=== PATIENT | male | born 1940 | race Caucasian/White ===

== ENCOUNTER → 2023-11-19 09:22 | Outpatient (REF) | payer MEDICARE, BC, SELFPAY ==
[2023-11-19 10:55] LABS: Microalbumin, Random Urine <0.6 mg/dl (0.6-1.7)
[2023-11-19 11:04] LABS: % Basophils 0.7 % (0-2); % Eosinophils 4.2 % (0-6); % Immature Granulocytes 0.2 % (0-0.5); % Monocytes 11.4 % (1.7-9.3); % Neutrophils 64.5 % (42.2-75.2); Absolute Eosinophils 0.2 10^3/uL (0-0.7); Absolute Monocytes 0.6 10^3/uL (0.1-0.6); Absolute Neutrophils 3.5 10^3/uL (1.4-6.5); Hemoglobin 11.8 g/dL (13.0-18.0); Mean Corp Hgb Conc. 32.8 g/dL (33.0-37.0); Mean Corpuscular Hgb 32.5 pg (27.0-31.0); Mean Corpuscular Volume 99.2 fL (80.0-94.0); Nucleated Red Blood Cells % 0 % (-); Platelet Count 145 10^3/uL (130-400); Red Blood Cell Count 3.63 10^6/uL (4.70-6.10); Red Cell Dist. Width 14.6 % (11.5-14.5); White Blood Cell Count 5.4 10^3/uL (4.8-10.8)
[2023-11-19 11:58] LABS: ALT (SGPT) 23 U/L (0-50); AST (SGOT) 31 U/L (17-59); Albumin 4.5 g/dl (3.5-5.0); Alkaline Phosphatase 73 U/L (38-126); Blood Urea Nitrogen 30 mg/dl (9-20); Calcium 9.4 mg/dl (8.4-10.2); Carbon Dioxide 26 mmol/L (22-30); Chloride 101 mmol/L (98-107); Glucose 120 mg/dl (70-99); HDL Cholesterol 91 mg/dl; LDL Cholesterol, Calculated 50 mg/dl; Potassium 4.8 mmol/L (3.5-5.1); Sodium 136 mmol/L (135-145); Total Bilirubin 0.8 mg/dl (0.2-1.3); Total Cholesterol 149 mg/dl (50-199); Total Protein 7.1 g/dl (6.3-8.2); Triglyceride 41 mg/dl (10-149); Very Low Density Lipoprotein 8 mg/dl (0-30); eGFR > 60.00
[2023-11-19 12:15] LABS: Free T4 1.32 ng/dl (0.78-2.19); Glycohemoglobin (HgbA1c) 5.9 % (4.0-5.6)
[2023-11-19 12:29] LABS: TSH 0.87 uIU/ml (0.47-4.68)
== END ==
LOC: REG 09:22
PROVIDERS: ATTENDING PHYSICIAN Family Medicine
DX: E78.2 Mixed hyperlipidemia (principal); E11.9 Type 2 diabetes mellitus without complications; I10 Essential (primary) hypertension; E03.9 Hypothyroidism, unspecified
CPT/HCPCS: 36415; 80053; 80061; 82043; 82570; 83036; 84439; 84443; 85025

== ENCOUNTER → 2024-01-15 06:38 | Outpatient (REF) | payer MEDICARE, BC, SELFPAY | LOC: RAD 06:38 | PROVIDERS: ATTENDING PHYSICIAN Nuclear Medicine Nuclear Cardiology; FAMILY PHYSICIAN Family Medicine | DX: I10 Essential (primary) hypertension (principal); I77.9 Disorder of arteries and arterioles, unspecified; Z13.6 Encounter for screening for cardiovascular disorders; I25.10 Atherosclerotic heart disease of native coronary artery without angina pectoris | CPT/HCPCS: 76770; 93880 ==

== ENCOUNTER → 2024-01-23 08:19 | Outpatient (REF) | payer MEDICARE, BC, SELFPAY | LOC: RCS 08:19 | PROVIDERS: ATTENDING PHYSICIAN Nuclear Medicine Nuclear Cardiology; FAMILY PHYSICIAN Family Medicine | DX: I10 Essential (primary) hypertension (principal); R06.09 Other forms of dyspnea; Z95.1 Presence of aortocoronary bypass graft; Z95.2 Presence of prosthetic heart valve | CPT/HCPCS: 93306; Q9950 ==

== ENCOUNTER → 2024-07-07 10:58 | Outpatient (REF) | payer MEDICARE, BC, SELFPAY ==
[2024-07-07 11:53] LABS: % Basophils 0.9 % (0-2); % Eosinophils 3.2 % (0-6); % Immature Granulocytes 0.4 % (0-0.5); % Lymphocytes 15.7 % (20.5-51.1); % Monocytes 10.1 % (1.7-9.3); % Neutrophils 69.7 % (42.2-75.2); Absolute Basophils 0.1 10^3/uL (0-0.2); Absolute Eosinophils 0.2 10^3/uL (0-0.7); Absolute Lymphocytes 0.9 10^3/uL (1.2-3.4); Absolute Monocytes 0.6 10^3/uL (0.1-0.6); Absolute Neutrophils 3.9 10^3/uL (1.4-6.5); Hematocrit 35.7 % (39.0-52.0); Hemoglobin 11.5 g/dL (13.0-18.0); Mean Corp Hgb Conc. 32.2 g/dL (33.0-37.0); Mean Corpuscular Hgb 32.6 pg (27.0-31.0); Mean Corpuscular Volume 101.1 fL (80.0-94.0); Mean Platelet Volume 9.9 fL (7.4-10.4); Nucleated Red Blood Cells % 0 % (-); Platelet Count 153 10^3/uL (130-400); Red Blood Cell Count 3.53 10^6/uL (4.70-6.10); Red Cell Dist. Width 15.4 % (11.5-14.5); White Blood Cell Count 5.6 10^3/uL (4.8-10.8)
[2024-07-07 12:17] LABS: Glycohemoglobin (HgbA1c) 5.9 % (4.0-5.6)
[2024-07-07 12:25] LABS: ALT (SGPT) 24 U/L (0-50); AST (SGOT) 26 U/L (17-59); Albumin 4.6 g/dl (3.5-5.0); Alkaline Phosphatase 105 U/L (38-126); Blood Urea Nitrogen 19 mg/dl (9-20); Calcium 8.9 mg/dl (8.4-10.2); Carbon Dioxide 27 mmol/L (22-30); Chloride 97 mmol/L (98-107); Glucose 120 mg/dl (70-99); HDL Cholesterol 87 mg/dl; LDL Cholesterol, Calculated 42 mg/dl; Potassium 4.7 mmol/L (3.5-5.1); Sodium 135 mmol/L (135-145); Total Bilirubin 1.4 mg/dl (0.2-1.3); Total Cholesterol 137 mg/dl (50-199); Triglyceride 43 mg/dl (10-149); Very Low Density Lipoprotein 8 mg/dl (0-30); eGFR > 60.00
[2024-07-07 12:38] LABS: Free T4 1.35 ng/dl (0.78-2.19)
[2024-07-07 12:52] LABS: TSH 1.28 uIU/ml (0.47-4.68)
[2024-07-07 12:54] LABS: Microalbumin, Random Urine 3.7 mg/dl (0.6-1.7)
== END ==
LOC: REG 10:58
PROVIDERS: ATTENDING PHYSICIAN Family Medicine
DX: E11.9 Type 2 diabetes mellitus without complications (principal); E78.2 Mixed hyperlipidemia; E03.9 Hypothyroidism, unspecified
CPT/HCPCS: 36415; 80053; 80061; 82043; 82570; 83036; 84439; 84443; 85025

== ENCOUNTER → 2024-12-04 12:29 | Outpatient (REF) | payer MEDICARE, BC, SELFPAY ==
--- NOTE | 2024-12-04 14:29 | CARDSERVDEF ---
Echocardiogram with Definity completed after protocol screening completed. Allergies verified.
Patent IV site: _Rt AC____
IV site flushed with 0.9% NaCl pre and post administration.
Diluted bolus method utilized to enhance visualization of ventricular wilkins.
Total volume given: ___1.5 mL
Patient tolerated all procedures well without complications.
#22 austyn placed Rt AC. definity given. INT d/c'd. pressure held. no bleeding noted.
== END ==
LOC: RCS 12:29
PROVIDERS: ATTENDING PHYSICIAN Nurse Practitioner; FAMILY PHYSICIAN Family Medicine
DX: I48.0 Paroxysmal atrial fibrillation (principal); I35.0 Nonrheumatic aortic (valve) stenosis; Z95.2 Presence of prosthetic heart valve
CPT/HCPCS: 93307; Q9957

== ENCOUNTER → 2024-12-28 07:50 | Outpatient (REF) | payer MEDICARE, BC, SELFPAY | LOC: HWRCS 07:50 | PROVIDERS: ATTENDING PHYSICIAN Nuclear Medicine Nuclear Cardiology; FAMILY PHYSICIAN Family Medicine | DX: R55 Syncope and collapse (principal); I25.10 Atherosclerotic heart disease of native coronary artery without angina pectoris | CPT/HCPCS: 78452; 93017; A9500; J2785 ==

== ENCOUNTER 2025-01-04 12:47 | Emergency (ER) | payer MEDICARE, BC, SELFPAY ==
[2025-01-04 12:54] VITALS: BP 125/65
[2025-01-04 15:54] VITALS: BP 160/81
--- NOTE | 2025-01-04 17:27 | ED.GENMED ---
History of Present Illness
General
Chief Complaint: Musculo-Skeletal Complaint
Time Seen by Provider: 01/04/25 16:40
History of Present Illness
History of Present Illness:
84-year-old male presents to the emergency department for evaluation of left hip pain after a fall yesterday. 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 He is able to ambulate. His daughter noted severe bruising of the
area today and referred him into the ED, he does take Eliquis. Denies head strike
Past History
Past History
ED Past Medical History: Arrthythmia (Atrial fib), CAD, GERD, HTN, Hypercholesterolemia, [place], Hypothyroidism and Other (Anemia, BPH)
ED Past Surgical History: Cardiac (CABG,valve replaced), Orthopedic, Tonsilectomy and Other
Social History
Tobacco: Former smoker
Alcohol: Occasional
Drug: None
Personal:
Living: with family
Employment: Retired
Review of Systems
Review of Systems
Allergies reviewed?: Yes
Constitutional: Reports no symptoms
Phy Exam
Physical Exam
Physical Exam:
GEN: Well appearing, NAD, WDWN
HEENT: Oral mucosa moist, no scleral icterus
Cardiac: Regular rate
Lung: No respiratory distress, no tachypnea
MSK: Large ecchymosis with palpable hematoma to the left gluteus extending to the trochanteric region of the left hip, left hip range of motion is normal and unrestricted
Skin: Good color, no pallor or jaundice, no rashes
Neuro: AO x3, moves all extremities freely
Psych: Calm, cooperative
Course
Orders/Labs/Results
Orders:
Orders
01/04/25 16:42
CR Hip - LT w/wo Pel 2-3 Vw* Urgent
Comment:
Reason For Exam: fall
Include a pelvis x-ray?: Yes
Vital Signs
Initial and Last Documented VS:
Initial Vital Signs
Temp Pulse Resp BP Pulse Ox
97.9 F 86 16 125/65 98
01/04/25 12:54 01/04/25 12:54 01/04/25 12:54 01/04/25 12:54 01/04/25 12:54
Last Documented Vital Signs
Temp Pulse Resp BP Pulse Ox
97.9 F 71 16 160/81 99
01/04/25 12:54 01/04/25 15:54 01/04/25 12:54 01/04/25 15:54 01/04/25 17:28
MDM/Problems Addressed
MDM/Problems Addressed:
X-rays are unremarkable. The patient was able to ambulate steadily in the ED without significant pain. Likely soft tissue hematoma due to anticoagulant use. Discussed supportive care
*Pulse Oximetry
SaO2: 99
Oxygen Mode of Delivery: Room air
Patient hypoxic: no
*Critical Care Note
Total Time (30-74mins, 75-104mins- exclusive of procedures): Not Applicable
ED Attending Note
-
Portions of this chart may have been created with voice recognition software.� Occasional wrong word or��sound alike� substitutions may have occurred due to the inherent limitations of voice recognition software.
Discharge Plan
Departure
Patient Disposition: Home (Routine Discharge)
Date of Disposition: 01/04/25
Time of Disposition: 18:38
Patient with high blood pressure during this ER visit?: No
Discharge Problem:
Hematoma of left hip
Instructions: Hematoma
Prescriptions:
No Action
atorvastatin 80 MG tablet
80 mg PO QPM
terazosin 1 MG capsule
1 mg PO QPM
levothyroxine 100 MCG tablet
100 mcg PO DAILY
aspirin [Reuben Chewable Aspirin] 81 MG tablet,chewable
81 mg PO QPM
lisinopril 5 MG tablet
5 mg PO DAILY
metoprolol succinate 25 MG tablet extended release 24 hr
25 mg PO DAILY
Patient Comments:
Pt not sure if he is on metoprolol
finasteride 5 MG tablet
5 mg PO DAILY
ezetimibe 10 MG tablet
10 mg PO QPM
vit C,J-Oh-uvwdi-lutein-zeaxan [PreserVision AREDS-2] 1 EACH capsule
1 ea PO DAILY
apixaban [Eliquis] 5 MG tablet
5 mg PO BID
furosemide [Lasix] 20 MG tablet
20 mg PO DAILY
Patient Comments:
Pt took 2-3 doses as outpatient prior to TAVR
guaifenesin [Mucus Relief ER] 600 MG tablet extended release 12hr
600 mg PO Q12 Qty: 20 0RF
Referrals:
Mamadou Mi MD [Family Provider, Family Practice]
Interventions
Interventions:
*General Assessment Last Done: 01/04/25 18:58
*Nursing Disposition Last Done: 01/04/25 18:58
ED-Musculoskeletal Assessment Last Done: 01/04/25 17:45
Discharge Date and Time
Print Language: TANZANIAN
== END 2025-01-04 18:59 | disposition home or self-care (01) ==
LOC: EMR 12:47
PROVIDERS: EMERGENCY PHYSICIAN Student in an Organized Health Care Education/Training Program; FAMILY PHYSICIAN Family Medicine
DX: S70.02XA Contusion of left hip, initial encounter (principal); W01.0XXA Fall on same level from slipping, tripping and stumbling without subsequent striking against object, initial encounter; E03.9 Hypothyroidism, unspecified; E78.00 Pure hypercholesterolemia, unspecified; I10 Essential (primary) hypertension; I25.10 Atherosclerotic heart disease of native coronary artery without angina pectoris; Z87.891 Personal history of nicotine dependence; Z95.1 Presence of aortocoronary bypass graft
CPT/HCPCS: 99283; 73502

== ENCOUNTER → 2025-01-20 16:26 | Outpatient (REF) | payer MEDICARE, BC, SELFPAY | LOC: CLAB 16:26 | PROVIDERS: ATTENDING PHYSICIAN Surgery | DX: N39.0 Urinary tract infection, site not specified (principal) | CPT/HCPCS: 87086 ==

== ENCOUNTER → 2025-02-05 12:34 | Outpatient (REF) | payer MEDICARE, BC, SELFPAY ==
[2025-02-05 14:01] LABS: Hematocrit 33.2 % (39.0-52.0); Hemoglobin 10.9 g/dL (13.0-18.0); Mean Corp Hgb Conc. 32.8 g/dL (33.0-37.0); Mean Corpuscular Volume 100.9 fL (80.0-94.0); Nucleated Red Blood Cells % 0 % (-); Platelet Count 177 10^3/uL (130-400); Red Cell Dist. Width 15.6 % (11.5-14.5)
[2025-02-05 16:29] LABS: ALT (SGPT) 24 U/L (0-50); AST (SGOT) 26 U/L (17-59); Albumin 4.5 g/dl (3.5-5.0); Alkaline Phosphatase 89 U/L (38-126); Blood Urea Nitrogen 24 mg/dl (9-20); Calcium 9.2 mg/dl (8.4-10.2); Carbon Dioxide 27 mmol/L (22-30); Chloride 100 mmol/L (98-107); Glucose 167 mg/dl (70-99); Potassium 4.9 mmol/L (3.5-5.1); Sodium 135 mmol/L (135-145); Total Protein 7.1 g/dl (6.3-8.2); eGFR > 60.00
== END ==
LOC: REG 12:34
PROVIDERS: ATTENDING PHYSICIAN Surgery; FAMILY PHYSICIAN Family Medicine
DX: N40.1 Benign prostatic hyperplasia with lower urinary tract symptoms (principal); I48.0 Paroxysmal atrial fibrillation
CPT/HCPCS: 36415; 80053; 84153; 84154; 85025

== ENCOUNTER 2025-02-22 06:37 | Day surgery (SDC) | payer MEDICARE, BC, SELFPAY ==
[2025-02-22] VITALS (9 sets, daily range): BP systolic 114–170; BP diastolic 60–105; BMI 32.5
--- NOTE | 2025-02-22 16:32 | W.IMMPOSTOP ---
Surgical Immed Post Op Note
-
Primary Surgeon: Glenn
Pre-op Diagnosis: BPH with UPTON, bladder stone
Post-op Diagnosis: Same
Procedure Performed: Cystolitholapaxy, TURP
Anesthesia Type: LMA
Specimen / Cultures: Prostate chips/None
Estimated Blood Loss: Negligible
Drains: 22Fr 3-way catheter (25 cc in balloon)
Complications: None
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
[2025-02-22] MEDS: DETROL LA 4 MG PO (16:55)
[2025-02-22] MEDS: LOW STRENGTH ASPIRIN 81 MG PO (18:11)
[2025-02-22] MEDS: LIPITOR 80 MG PO (18:11)
[2025-02-22] MEDS: ZETIA 10 MG PO (18:12)
--- NOTE | 2025-02-22 19:13 | PTCARENOTE ---
1735 Pt arrived from PACU. VSS. Oriented to room and call banuelos. CBI infusing bright red urine draining. Bed locked and in the lowest position.
[2025-02-22] MEDS: OCUVITE SOFTGEL 1 CAP PO (20:42)
[2025-02-22] MEDS: FLOMAX 0.4 MG PO (20:42)
[2025-02-23 03:09] VITALS: BP 140/81
[2025-02-23] MEDS: SYNTHROID 100 MCG PO (06:11)
[2025-02-23 07:00] VITALS: BP 150/77
[2025-02-23 07:30] LABS: Hematocrit 33.4 % (39.0-52.0); Hemoglobin 11.0 g/dL (13.0-18.0); Mean Corp Hgb Conc. 32.9 g/dL (33.0-37.0); Mean Corpuscular Volume 100.3 fL (80.0-94.0); Nucleated Red Blood Cells % 0 % (-); Platelet Count 150 10^3/uL (130-400); Red Cell Dist. Width 15.2 % (11.5-14.5)
[2025-02-23 07:50] LABS: Blood Urea Nitrogen 18 mg/dl (9-20); Calcium 9.2 mg/dl (8.4-10.2); Carbon Dioxide 27 mmol/L (22-30); Chloride 100 mmol/L (98-107); Estimated Creatinine Clearance 72 ml/min; Glucose 132 mg/dl (70-99); Potassium 4.7 mmol/L (3.5-5.1); Sodium 134 mmol/L (135-145); eGFR > 60.00
[2025-02-23] MEDS: OCUVITE SOFTGEL 1 CAP PO (09:37)
[2025-02-23] MEDS: TOPROL XL 25 MG PO (09:37)
[2025-02-23] MEDS: ZESTRIL 5 MG PO (09:38)
[2025-02-23] MEDS: PROSCAR 5 MG PO (09:38)
--- NOTE | 2025-02-23 10:38 | CM ---
Reviewed the chart notes and spoke with the patient at the bedside. The patient resides alone in a one story home with a total of two steps to enter. The patient reports DME in home includes cane, rolling walker, and shower chair. The patient has
had [facility] in the past, but no SNF. The patient confirmed [facility]. CM continues to be available to patient/family and is monitoring medical plan for needs at discharge.
Plan: Discharge to home when medically stable. Son-in-law or daughter will transport home today.
[2025-02-23 11:00] VITALS: BP 108/55
--- NOTE | 2025-02-23 12:05 | W.DS.TRANS ---
DC Summary - Private Tutor
-
Discharge Instructions:
Sleep Apnea Risk Intermediate
Discharge Diagnosis/Procedures BPH with UPTON, bladder stone s/p cystolitholapaxy
and TURP
Diet Regular
Activity No strenuous activity
Additional Activity No strenuous activity, heavy exercise, lifting >
20 lbs for 1 week after surgery
Driving Restrictions No driving for 24 hours
Bathing Restrictions None
Blood Work not applicable
Wound Care not applicable
Instructions:
Stand-Alone Forms:
Changes to Home Medications: No
Discharge Medications:
DC Medications w/original date entered in [employer]
aspirin 81 mg chewable tablet (Reuben Chewable Low Dose Aspirin) 81 mg PO QPM Blood clot prevention/tx 07/19/20
atorvastatin 80 mg tablet 80 mg PO QPM High cholesterol 07/19/20
ezetimibe 10 mg tablet 10 mg PO QPM High cholesterol 07/19/20
finasteride 5 mg tablet 5 mg PO DAILY PROSTATE 07/19/20
levothyroxine 100 mcg tablet 100 mcg PO DAILY Thyroid 07/19/20
lisinopril 5 mg tablet 5 mg PO DAILY Blood pressure 07/19/20
metoprolol succinate 25 mg tablet,extended release 24 hr 25 mg PO DAILY Blood pressure 07/19/20
vit C 250 mg-vit E 90 mg-zinc 40 mg-copper 1 pb-kusfek-bgxwoz capsule (PreserVision AREDS-2) 1 ea PO BID Supplement 07/19/20
apixaban 5 mg tablet (Eliquis) 5 mg PO BID Blood clot prevention/tx 08/08/20
Held on 02/22/25. Instructions: Resume on 02/25/25.
furosemide 20 mg tablet (Lasix) 20 mg PO DAILY PRN Fluid retention/Swelling 08/12/20
tamsulosin 0.4 mg capsule 0.4 mg PO HS 02/19/25
amoxicillin 500 mg-potassium clavulanate 125 mg tablet (Augmentin) 1 tab PO BID 5 days #10 tabs 02/22/25
phenazopyridine 200 mg tablet (Pyridium) 200 mg PO BID PRN dysuria 4 days #8 tabs 02/22/25
Home Medication Changes
Pending Results: Yes
Additional Pending Results:
surgical pathology
Total time spent discharging patient (in min): 35
[2025-02-23 15:00] VITALS: BP 135/66
--- NOTE | 2025-02-23 16:12 | W.PN.UPDATE ---
Update Note
Progress Note Update
Post-op urinary retention noted in afternoon w/o void - bladder scan >900 cc.
20Fr Coude catheter placed w/ merlot-colored aqueous UOP - 200 +700 cc UOP.
Of note, patient required to be on aspirin perioperatively per Cardiology (Eliquis held preop and postop).
exam: aqueous dark bloody drainage w/o clots, bladder non-distended.
Plan:
- Maintain Mark catheter to drainage - no indication for 3-way or CBI at this time
- Hand irrigate w/ 30-60 cc sterile solution prn
- Will plan for d/c home w/ catheter in place - outpatient voiding trial
D/w patient.
D/w RN.
[2025-02-23] MEDS: ZETIA 10 MG PO (18:14)
[2025-02-23] MEDS: LOW STRENGTH ASPIRIN 81 MG PO (18:14)
[2025-02-23] MEDS: LIPITOR 80 MG PO (18:14)
--- NOTE | 2025-02-23 18:25 | PTCARENOTE ---
@1500, pt unable to void except small drips of blood. pt assisted out of bed to chair to bathroom, passed a few clots. pt ambulated in hallway with RW. voided a small amount. bladder scan revealed 903ml. Dr Elizabeth notified. new order received
to replace Mark catheter. AT 1530, #20 Fr Coude catheter placed without difficulty. immediate return dark red blood-[address] Elizabeth made aware and @1545, catheter hand irrigated with 60 ml NSS via catheter directly easily, no resistance
and immediate return of 60 ml dark red blood with few small clots. catheter reconnected to drainage bag and 750 ml dark red bloody urine drained. Dr Elizabeth to see pt. care ongoing.
[2025-02-23] MEDS: FLOMAX 0.4 MG PO (21:32)
[2025-02-23] MEDS: OCUVITE SOFTGEL PO (22:37)
[2025-02-24] MEDS: SYNTHROID 100 MCG PO (05:40)
[2025-02-24 08:18] VITALS: BP 121/63
--- NOTE | 2025-02-24 08:56 | CM ---
Addendum entered by Nasrin Nayak RN 02/24/25 12:57:
No VN needed since patient will have villalobos removed in urologies office tomorrow at 9AM. Patient aware and agreeable. Patient's daughter is a nurse.
Original Note:
Reviewed the chart notes and spoke with the patient at the bedside. Patient had villalobos reinserted late yesterday. Per notes, patient will be discharged with villalobos. Patient had [facility] in past and agreeable to a referral for [facility] being sent via [facility] continues to be available to patient/family and is monitoring medical plan for needs at discharge.
Plan: Discharge to home with [facility] services. Family to transport.
[2025-02-24] MEDS: OCUVITE SOFTGEL 1 CAP PO (10:02)
[2025-02-24] MEDS: ZESTRIL 5 MG PO (10:02)
[2025-02-24] MEDS: PROSCAR 5 MG PO (10:03)
[2025-02-24] MEDS: TOPROL XL 25 MG PO (10:03)
--- NOTE | 2025-02-24 12:50 | VNURNOTE ---
Chart reviewed. Per Dr Elizabeth, pt will go to Uro office tomorrow AM for voiding trial. Confirmed w/Uro pt will not need VN. CM [place] updated.
PM-[facility] referral cancelled. Magalie in Intake aware.
[2025-02-24 15:45] VITALS: BP 106/56
[2025-02-28 12:46] LABS: Stone Analysis Mass 123 mg
== END 2025-02-24 16:15 | disposition home or self-care (01) ==
LOC: SDS 06:37
PROVIDERS: ATTENDING PHYSICIAN Surgery
DX: N40.1 Benign prostatic hyperplasia with lower urinary tract symptoms (principal); N32.0 Bladder-neck obstruction; N21.0 Calculus in bladder
CPT/HCPCS: 52601; 80048; 82365; 85025; 88305; 93005; 93971

== ENCOUNTER 2025-03-05 02:04 | Inpatient (IN) | payer MEDICARE, BC, SELFPAY ==
[2025-03-04 23:02] VITALS: BP 146/118
[2025-03-04] MEDS: TYLENOL 1000 MG PO (23:15)
[2025-03-04 23:22] LABS: Hematocrit 27.1 % (39.0-52.0); Hemoglobin 9.2 g/dL (13.0-18.0); Mean Corp Hgb Conc. 33.9 g/dL (33.0-37.0); Mean Corpuscular Volume 95.4 fL (80.0-94.0); Nucleated Red Blood Cells % 0 % (-); Platelet Count 170 10^3/uL (130-400); Red Cell Dist. Width 15.0 % (11.5-14.5)
[2025-03-04 23:30] VITALS: BP 104/55; BMI 32.7
[2025-03-04 23:48] LABS: ALT (SGPT) 22 U/L (0-50); AST (SGOT) 26 U/L (17-59); Albumin 4.0 g/dl (3.5-5.0); Alkaline Phosphatase 83 U/L (38-126); Blood Urea Nitrogen 19 mg/dl (9-20); Calcium 8.9 mg/dl (8.4-10.2); Carbon Dioxide 23 mmol/L (22-30); Chloride 100 mmol/L (98-107); Estimated Creatinine Clearance 53 ml/min; Glucose 147 mg/dl (70-99); Potassium 4.7 mmol/L (3.5-5.1); Sodium 131 mmol/L (135-145); Total Protein 6.6 g/dl (6.3-8.2); eGFR > 60.00
--- NOTE | 2025-03-04 23:51 | ED.GENMED ---
History of Present Illness
<Cynthia Alejandra PA-C - Last Filed: 03/05/25 02:14>
General
Chief Complaint: Fever
Time Seen by Provider: 03/04/25 23:28
History of Present Illness
History of Present Illness:
see MDM
Past History
<LAURA Dumont Last Filed: 03/05/25 02:14>
Past History
ED Past Medical History: Arrthythmia (Atrial fib), CAD, GERD, HTN, Hypercholesterolemia, [place], Hypothyroidism and Other (Anemia, BPH)
ED Past Surgical History: Cardiac (CABG,valve replaced), Orthopedic, Tonsilectomy and Other
Social History
Tobacco: Former smoker
Alcohol: Occasional
Drug: None
Personal:
Living: with family
Employment: Retired
Phy Exam
<LAURA Dumont Last Filed: 03/05/25 02:14>
Physical Exam
Physical Exam:
GENERAL: Alert , in no apparent distress
EYE: pupils equal and reactive
NECK: Supple
ENT: o/p clr, mmm.
CARDIAC: Regular rate and rhythm .
LUNGS: Clear breath sounds bilaterally, no acute respiratory distress, no wheezes/rales/rhonchi
ABDOMEN: Soft, mild distention no r/g, no cvat, normal bowel sounds
: Penis with evidence of dried blood, no active bleeding
NEUROLOGICAL: Alert and oriented, no focal neuro deficits
SKIN: Warm and dry, skin intact.
MUSCULOSKELETAL: No edema, well perfused. neg kassie's sign
PSYCH: Normal and appropriate interaction.
Sepsis
<LAURA Dumont Last Filed: 03/05/25 02:14>
Sepsis Screening
Sepsis Assessment: Sepsis
Sepsis Screen
Sepsis Screen: Sepsis
Date: 03/05/25
Time: 02:14
Course
<Cynthia Alejandra PA-C - Last Filed: 03/05/25 02:14>
Orders/Labs/Results
Orders:
Orders
03/04/25 23:11
Urinalysis Reflex To Culture Urgent
Date Specimen was Collected: 03/04/25
Time Specimen was Collected: 23:11
03/04/25 23:13
Complete Blood Count/With Diff Urgent
Comprehensive Metabolic Panel Urgent
Lactic Acid Q4H
Comment: ON ICE, CANCEL 2ND ORDER IF FIRST LACTIC ACID LEVEL <2
03/04/25 23:14
Blood Culture Q20M
TOI Source: Blood/Venous
Specimen Description:
Comment: Urgent from separate sites. If patient screens positive for possible sepsis
03/04/25 23:15
Acetaminophen [Tylenol] 1,000 mg PO NOW STA
03/04/25 23:35
Blood Culture Q20M
TOI Source: Blood/Venous
Specimen Description:
Comment: Urgent from separate sites. If patient screens positive for possible sepsis
03/04/25 23:51
Villalobos Placement- Treatment ONCE
Reason for insertion: Acute Retention
0.9% Sodium Chloride 1000 ml [Nss] 1,000 ml IV BOLUS
03/05/25 00:01
Piperacillin/Tazo 3.375 Gram [Zosyn] 3.375 gram in 50 ml IV NOW
Vancomycin [Vancocin] 2,000 mg 0.9% Sodium Chloride 500 ml [Nss] 500 ml IV NOW
03/05/25 00:03
CR Chest - 2 Views Urgent
Comment:
Reason For Exam: sepsis
03/05/25 00:04
CT Abd/pel Without Iv Or Oral Urgent
Comment:
Reason For Exam: turp, hematuria, fever
03/05/25 00:33
Influenza A+B Rapid Molecular Urgent
TOI Source: Nasal Swab
Specimen Description:
03/05/25 00:34
COVID-19 Antigen Urgent
Source: Nasal Swab
Lactic Acid Q4H
Comment: ON ICE, CANCEL 2ND ORDER IF FIRST LACTIC ACID LEVEL <2
Urine Microscopic Reflex Cult Urgent
03/05/25 01:33
0.9% Sodium Chloride 1000 ml [Nss] 1,500 ml IV BOLUS
03/05/25 01:47
CBI- Treatment PRN
Solution: normal saline
Irrigate to Clear?: Yes
03/05/25 01:56
Admit/Transfer Patient As Directed
Co-Sign Provider:
Level of Care: Inpatient admission
Assign to:: Medical/Surgical
Physician / Group: [facility]
Diagnosis: Hematuria, Sepsis / UTI
Reason for Hospitalization: Hematuria, Sepsis / UTI
Expected length of stay greater than two midnights?: Yes
ELOS- Estimated Length of Stay in days: 3
I certify the patient meets the requirements for IP care: Yes
PRN Pain Medication Management As Directed
May give lesser potent ordered pain med per pt: Yes
preference::
Protocol:: Medication orders for pain may be administered in a
manner that supports deferring to patient preference
when the pt is:
- Requesting an ordered lesser potent pain medication.
Least to most potent pain medications are defined
as: acetaminophen < NSAID < tramadol < opioids
(morphine, oxycodone, hydromorphone).
- Requesting a lesser dose of the same medication IF
ORDERED.
- Requesting a less intrusive route of administration
if both routes are prescribed by the provider (PO <
IV).
03/05/25 01:57
Code Status As Directed
Resuscitation Status: Do not resuscitate
Reached after discussion with pt or family/Healthcare POA: Yes
DNR Bracelet Application ONCE
03/05/25 02:00
Potassium Alum 30 grams 0.9% Sod Chloride 3000 ml Irr [Nss Irrigation Bag] 2,700 ml IRRIG ORDERED RATE
US Periph Venous LOWER Ext Richard Urgent
Comment:
Reason For Exam: Asymmetric edema
Abnormal Lab Results
03/04/25 03/05/25
23:13 00:34
WBC 14.9 H 10^3/uL
(4.8-10.8)
RBC 2.84 L 10^6/uL
(4.70-6.10)
Hgb 9.2 L g/dL
(13.0-18.0)
Hct 27.1 L %
(39.0-52.0)
MCV 95.4 H fL
(80.0-94.0)
MCH 32.4 H pg
(27.0-31.0)
RDW 15.0 H %
(11.5-14.5)
Abs Immat Gran (auto) 0.1 H 10^3/uL
(0-0.05)
Absolute Neuts (auto) 14.3 H 10^3/uL
(1.4-6.5)
Absolute Lymphs (auto) 0.2 L 10^3/uL
(1.2-3.4)
Neutrophils % 95.6 H %
(42.2-75.2)
Lymphocytes % 1.6 L %
(20.5-51.1)
Sodium 131 L mmol/L
(135-145)
Glucose 147 H mg/dl
(70-99)
Ur Occult Blood Reflex 4+ A
(Negative)
Urine RBC >100 A /HPF
(0-2)
Urine Albumin (Reflex) 4+ A
(Neg - Trace)
03/04/25 23:13
03/04/25 23:13
Vital Signs
Initial and Last Documented VS:
Initial Vital Signs
Temp Pulse Resp BP Pulse Ox
39.5 C H 102 16 146/118 96
03/04/25 23:02 03/04/25 23:02 03/04/25 23:02 03/04/25 23:02 03/04/25 23:02
Last Documented Vital Signs
Temp Pulse Resp BP Pulse Ox
39.5 C H 97 17 101/49 94
03/04/25 23:02 03/05/25 00:00 03/05/25 00:00 03/05/25 00:00 03/04/25 23:53
<Tanner Linares, DO - Last Filed: 03/05/25 00:02>
Orders/Labs/Results
Orders:
Orders
03/04/25 23:11
Urinalysis Reflex To Culture Urgent
Date Specimen was Collected: 03/04/25
Time Specimen was Collected: 23:11
03/04/25 23:13
Complete Blood Count/With Diff Urgent
Comprehensive Metabolic Panel Urgent
Lactic Acid Q4H
Comment: ON ICE, CANCEL 2ND ORDER IF FIRST LACTIC ACID LEVEL <2
03/04/25 23:14
Blood Culture Q20M
TOI Source: Blood/Venous
Specimen Description:
Comment: Urgent from separate sites. If patient screens positive for possible sepsis
03/04/25 23:15
Acetaminophen [Tylenol] 1,000 mg PO NOW STA
03/04/25 23:35
Blood Culture Q20M
TOI Source: Blood/Venous
Specimen Description:
Comment: Urgent from separate sites. If patient screens positive for possible sepsis
03/04/25 23:51
Villalobos Placement- Treatment ONCE
Reason for insertion: Acute Retention
0.9% Sodium Chloride 1000 ml [Nss] 1,000 ml IV BOLUS
03/05/25 00:01
Piperacillin/Tazo 3.375 Gram [Zosyn] 3.375 gram in 50 ml IV NOW
Vancomycin [Vancocin] 2,000 mg 0.9% Sodium Chloride 500 ml [Nss] 500 ml IV NOW
03/05/25 00:03
CR Chest - 2 Views Urgent
Comment:
Reason For Exam: sepsis
03/05/25 00:04
CT Abd/pel Without Iv Or Oral Urgent
Comment:
Reason For Exam: turp, hematuria, fever
03/05/25 00:33
Influenza A+B Rapid Molecular Urgent
TOI Source: Nasal Swab
Specimen Description:
03/05/25 00:34
COVID-19 Antigen Urgent
Source: Nasal Swab
Lactic Acid Q4H
Comment: ON ICE, CANCEL 2ND ORDER IF FIRST LACTIC ACID LEVEL <2
Urine Microscopic Reflex Cult Urgent
03/05/25 01:33
0.9% Sodium Chloride 1000 ml [Nss] 1,500 ml IV BOLUS
03/05/25 01:47
CBI- Treatment PRN
Solution: normal saline
Irrigate to Clear?: Yes
03/05/25 01:56
Admit/Transfer Patient As Directed
Co-Sign Provider:
Level of Care: Inpatient admission
Assign to:: Medical/Surgical
Physician / Group: [facility]
Diagnosis: Hematuria, Sepsis / UTI
Reason for Hospitalization: Hematuria, Sepsis / UTI
Expected length of stay greater than two midnights?: Yes
ELOS- Estimated Length of Stay in days: 3
I certify the patient meets the requirements for IP care: Yes
PRN Pain Medication Management As Directed
May give lesser potent ordered pain med per pt: Yes
preference::
Protocol:: Medication orders for pain may be administered in a
manner that supports deferring to patient preference
when the pt is:
- Requesting an ordered lesser potent pain medication.
Least to most potent pain medications are defined
as: acetaminophen < NSAID < tramadol < opioids
(morphine, oxycodone, hydromorphone).
- Requesting a lesser dose of the same medication IF
ORDERED.
- Requesting a less intrusive route of administration
if both routes are prescribed by the provider (PO <
IV).
03/05/25 01:57
Code Status As Directed
Resuscitation Status: Do not resuscitate
Reached after discussion with pt or family/Healthcare POA: Yes
DNR Bracelet Application ONCE
03/05/25 02:00
Potassium Alum 30 grams 0.9% Sod Chloride 3000 ml Irr [Nss Irrigation Bag] 2,700 ml IRRIG ORDERED RATE
US Periph Venous LOWER Ext Richard Urgent
Comment:
Reason For Exam: Asymmetric edema
Abnormal Lab Results
03/04/25 03/05/25
23:13 00:34
WBC 14.9 H 10^3/uL
(4.8-10.8)
RBC 2.84 L 10^6/uL
(4.70-6.10)
Hgb 9.2 L g/dL
(13.0-18.0)
Hct 27.1 L %
(39.0-52.0)
MCV 95.4 H fL
(80.0-94.0)
MCH 32.4 H pg
(27.0-31.0)
RDW 15.0 H %
(11.5-14.5)
Abs Immat Gran (auto) 0.1 H 10^3/uL
(0-0.05)
Absolute Neuts (auto) 14.3 H 10^3/uL
(1.4-6.5)
Absolute Lymphs (auto) 0.2 L 10^3/uL
(1.2-3.4)
Neutrophils % 95.6 H %
(42.2-75.2)
Lymphocytes % 1.6 L %
(20.5-51.1)
Sodium 131 L mmol/L
(135-145)
Glucose 147 H mg/dl
(70-99)
Ur Occult Blood Reflex 4+ A
(Negative)
Urine RBC >100 A /HPF
(0-2)
Urine Albumin (Reflex) 4+ A
(Neg - Trace)
03/04/25 23:13
03/04/25 23:13
Vital Signs
Initial and Last Documented VS:
Initial Vital Signs
Temp Pulse Resp BP Pulse Ox
39.5 C H 102 16 146/118 96
03/04/25 23:02 03/04/25 23:02 03/04/25 23:02 03/04/25 23:02 03/04/25 23:02
Last Documented Vital Signs
Temp Pulse Resp BP Pulse Ox
39.5 C H 97 17 101/49 94
03/04/25 23:02 03/05/25 00:00 03/05/25 00:00 03/05/25 00:00 03/04/25 23:53
<Cynthia Alejandra PA-C - Last Filed: 03/05/25 02:14>
MDM/Problems Addressed
Differential Diagnosis Includes:
see MDM
MDM/Problems Addressed:
Note:
CHIEF COMPLAINT(S)
Urinary retention and fever.
HISTORY OF PRESENT ILLNESS
The patient is an 84-year-old male who has a history of recent transurethral resection of the prostate (TURP) surgery by dr. bower on 02/22, here for urinary retention and fever. he f/u in the office on 03/02 and had his villalobos pulled. in the office
he was able to void some but not all the way so they gave him self-cath instructions to cath 2 times a day in addition to voiding on his own. The patient reports being able to void in small amounts intermittently but has experienced significant
retention since this afternoon, leading to increased feelings of malaise and chills, leading him to suspect a fever.
He last successfully voided a small amount this morning. The patient returned to the facility with symptoms of urinary retention, reporting that when he urinates, it is mostly dribbling with occasional larger outputs. Recently, urine output has
decreased significantly. He notes seeing blood in the urine, especially in smaller quantities.
The patient mentions feeling discomfort and chills, but did not check his temperature at home. He returned to taking his blood thinner, Apixaban, after being advised to stop temporarily for his procedure. The patient denies having taken any
antipyretic medication, such as acetaminophen, prior to arrival. There are no symptoms of nausea, vomiting, back pain, or chills. His daughter has been involved in his care and may be contacted for additional information.
ADDITIONAL HISTORY OBTAINED FROM SOURCES OTHER THAN THE PATIENT
Per the patients daughter, he has had four prior visits to the emergency room, though not since the recent surgery.
SOCIAL DETERMINANTS AFFECTING HEALTH
The patient has limited visual acuity, impacting his ability to perform self-catheterization effectively.
PHYSICAL EXAM
- Temperature: 103�F
- Blood Pressure: 104/55 mmHg
- Cardiovascular: No tachycardia noted
- Abdomen: Not tender on examination
- Genitourinary: Presence of blood in urine, as noted in the diaper
Nursing notes reviewed and vital signs reviewed. Data indicates urinary retention with approximately 700 milliliters in the bladder, confirmed via bladder scan.
PROBLEM LIST
Acute:
- Urinary retention
- Fever
Chronic:
- Recent TURP surgery
- Use of Apixaban for anticoagulation
PLAN
- Initiate a good septic workup, including the collection of blood cultures and laboratory assessments such as lactate levels.
- Administer acetaminophen to address febrile symptoms.
- Insert a Villalobos catheter equipped with irrigation capability to relieve urinary retention and manage blood clots in the bladder.
- As the catheter irrigates, monitor and clear any clots contributing to retention.
- Consider overnight admission to the facility to manage symptoms, especially due to the patients recent surgery and the potential risk of developing sepsis.
DIFFERENTIAL DIAGNOSIS
The Differential Diagnosis includes, in no particular order and is not limited to:
1. Urinary tract infection
2. Post-operative complications from TURP
3. Catheter-associated urinary tract infection
4. Bladder outlet obstruction
5. Non-infectious fever secondary to urine retention
6. Sepsis secondary to urological issue
7. Drug-induced hemorrhagic cystitis
8. Pyelonephritis
9. Prostatic hypertrophy
10. Urosepsis
84 y/o M
TURP 02/22
on eliquis which was resumed a few days post op
urinary retention after pulling villalobos in office 2 day sago
given isntreuctions to self cath
pt cannot unfortuantely do this, he cannot see well
he reports he only successfully cathed once
he now has hematuria and retention and a fever
soft bp
probably from the catheterizing
bladder scan [address] for CBI
hg stable but lower than preop
admit
iv abx
fluids
hold epiquis
<Cynthia Alejandra PA-C - Last Filed: 03/05/25 02:14>
*Pulse Oximetry
SaO2: 94
Oxygen Mode of Delivery: Room air
Patient hypoxic: no (95)
*Critical Care Note
Total Time (30-74mins, 75-104mins- exclusive of procedures): Not Applicable
ED Attending Note
<Cynthia Alejandra PA-C - Last Filed: 03/05/25 02:14>
-
Portions of this chart may have been created with voice recognition software.� Occasional wrong word or��sound alike� substitutions may have occurred due to the inherent limitations of voice recognition software.
<Tanner Linares DO - Last Filed: 03/05/25 00:02>
ED Attending Note
Patient seen and examined by attending physician: Yes
ED Attending Note:
Patient seen in conjunction with RUDOLPH. I have reviewed and agree with her disposition and treatment plan. Patient to be admitted for fevers post procedure. He also has jayna blood. Three-way Villalobos catheter was placed. Patient tolerated procedure
well. On my independent physical exam patient awake alert and oriented x 3, minimal acute distress. Abdomen is soft and nondistended. Skin is warm and dry.
Discharge Plan
Departure
Patient Disposition: Admit
Date of Disposition: 03/05/25
Time of Disposition: 00:46
Admit to: Med/Surg
Presentation/result/management discussed w/ accepting MD/DO: Hospitalist
Condition: Fair
Covid-19: Not Applicable
Discharge Problem:
Sepsis, Hematuria, Acute urinary retention
Interventions
Interventions:
*Risk Screen - Suicide Last Done: 03/04/25 23:02
*General Assessment Last Done: 03/04/25 23:02
*Neglect/Abuse Screening Last Done: 03/04/25 23:02
*ED- Fall Risk Assessment Last Done: 03/04/25 23:02
*ED COVID-19 Vaccine History Last Done: 03/04/25 23:02
*ED Influenza Vaccine History Last Done: 03/04/25 23:02
ED- Neurological Assessment Last Done: 03/04/25 23:30
ED-Skin Assessment Last Done: 03/04/25 23:30
[2025-03-05] VITALS: BP 101/49
[2025-03-05] MEDS: NSS 1000 IV ×3 (00:52→14:58)
[2025-03-05] MEDS: ZOSYN 50 IV (00:53)
[2025-03-05 01:00] LABS: Urine Character Bloody (Clear)
[2025-03-05] MEDS: VANCOCIN 540 MG IV (01:01)
[2025-03-05 01:04] LABS: Urine Red Blood Cell >100 /HPF (0-2); Urine Squamous Cell 0-2 /LPF (Few); Urine White Cell 0-2 /HPF (0-5)
[2025-03-05 01:25] LABS: COVID-19 Antigen Negative (Negative)
--- NOTE | 2025-03-05 02:02 | HPS.HSE ---
Family Physician
-
Family Physician: Mamadou Mi
Chief Complaint
-
Difficult urinating, Bloody urine.
History of Present Illness
Patient is an 84y M with PMH significant for ASCVD, A-Fib and hypertension who presents to ED complaining of difficulty urinating and grossly bloody urine. Patient underwent TURP here at on 02/22/25. He was discharged with Mark in place. He
was seen in the office on Saturday of this week and his Mark was removed at that time. Patient was advised to straight cath himself at home twice daily thereafter. He states that he had significant difficulty performing the procedure on his own due
to vision limitations. He has not successfully performed a catheterization since that time. Patient states that he was initially passing good volumes of urine. However, this significantly decreased throughout the week.
Today he noted very little urine output with some passage of clots and presented to the ED for further evaluation.
He denies any pain. No abdominal pain, flank pain, dysuria, etc. He had some chills at home this evening. No cough, SOB, N/V or other focal symptoms.
Medical History
Past Medical History
Past Medical History: Reports Other
Additional Past Medical History:
ASCVD
Hypertension
Paroxysmal Atrial Fibrillation
Hypertension
Diet-Controlled DM-II
Hypothyroidism
BPH
Past Surgical History: Reports Other
Additional Past Surgical History:
TURP (02/22/25)
CABG x 3
TAVR
Bilateral TKA
T&A
Cataracts
Social History
Tobacco: Former Smoker (Quit smoking > 60 years ago.)
Alcohol: Daily (Glass of wine daily.)
Family History
Family History: Not pertinent
Allergies / Home Medications
Allergies reflects when Allergies were last updated in [employer].
Home Medications with original date entered in [employer]
Allergy/Medication List:
Allergies
Allergy/AdvReac Type Severity Reaction Status Date / Time
No Known Allergies Allergy Verified 03/04/25 23:05
Home Medications
aspirin 81 mg chewable tablet (Reuben Chewable Low Dose Aspirin) 81 mg PO QPM Blood clot prevention/tx 07/19/20
atorvastatin 80 mg tablet 80 mg PO QPM High cholesterol 07/19/20
ezetimibe 10 mg tablet 10 mg PO QPM High cholesterol 07/19/20
finasteride 5 mg tablet 5 mg PO DAILY PROSTATE 07/19/20
levothyroxine 100 mcg tablet 100 mcg PO DAILY Thyroid 07/19/20
lisinopril 5 mg tablet 5 mg PO DAILY Blood pressure 07/19/20
metoprolol succinate 25 mg tablet,extended release 24 hr 25 mg PO DAILY Blood pressure 07/19/20
vit C 250 mg-vit E 90 mg-zinc 40 mg-copper 1 yu-awamwe-lrelye capsule (PreserVision AREDS-2) 1 ea PO BID Supplement 07/19/20
apixaban 5 mg tablet (Eliquis) 5 mg PO BID Blood clot prevention/tx 08/08/20
Held on 02/24/25. Instructions: Resume on 02/27/25.
furosemide 20 mg tablet (Lasix) 20 mg PO DAILY PRN Fluid retention/Swelling 08/12/20
tamsulosin 0.4 mg capsule 0.4 mg PO HS 02/19/25
Review of Systems
-
History Source: Patient
A 12 point ROS was completed and negative except as noted: Yes
Constitutional: Reports Chills; Denies Fever
Respiratory: Denies Cough or Trouble Breathing
Cardiac: Denies Chest Pain or Palpitations
Abdomen/GI: Denies Abdominal Pain, Nausea, Vomiting, Diarrhea, Bloody Stools or Black Stools
: Reports Difficulty Voiding and Bleeding; Denies Dysuria
Musculoskeletal: Reports Edema; Denies Joint Pain
Neurological: Denies Dizzy or Headache
Psych: Denies Depression or Anxiety
Physical Exam
Vital Signs
Vital Signs
Temp Pulse Resp BP Pulse Ox
103.1 F H 97 17 101/49 94
03/04/25 23:02 03/05/25 00:00 03/05/25 00:00 03/05/25 00:00 03/04/25 23:53
Physical Exam
General: Other (84y M in no acute distress. Mild pallor.)
HEENT: Moist mucous membranes and PERRLA
Respiratory: Clear; No Wheezes, Rales or Rhonchi
Cardiac: S1/S2 and Regular Rhythm; No Murmur
GI: Soft, Non Tender, Non Distended and Normal Bowel Sounds
Genito-urinary: Other (Mark in place draining grossly bloody urine.)
Musculoskeletal: No Clubbing, No Cyanosis and Other (R > L LE edema. No calf tenderness / cords.)
Neuro: AO x 3
Laboratory Results
-
03/04/25 23:13
03/04/25 23:13
Laboratory Results
Lactic Acid 1.4 mmol/L (0.7-2.0) 03/05/25 00:34
Total Bilirubin 0.6 mg/dl (0.2-1.3) 03/04/25 23:13
AST 26 U/L (17-59) 03/04/25 23:13
ALT 22 U/L (0-50) 03/04/25 23:13
Alkaline Phosphatase 83 U/L (38-126) 03/04/25 23:13
Impression/Plan
-
A/P: Patient is an 84y M with PMH significant for ASCVD, hypertension, A-Fib and TURP done on 02/22 who presents to ED complaining of difficuty urinating and grossly bloody urine.
Gross Hematuria
Difficulty Urinating
s/p TURP 02/22/25
- Admit for further evaluation and treatment.
- Mark re-placed in the ED for return of grossly bloody urine and clot.
- CBI to begin and run overnight to keep urine light red / free from clots.
- Continue to hold Eliquis (last dose was AM).
- Follow serial H&H and monitor for improvement in hematuria.
- Continue finasteride / tamsulosin.
- Urology consulted for additional recommendations.
Sepsis / Presumed Source
- Patient presents with fever (103), leukocytosis, tachycardia and tachypnea.
- UA without significant WBCs (but ? field obscured by RBCs).
- No other focal symptoms / findings. CT A/P completed and was unremarkable as well.
- IV abx for coverage.
- Added IVFs for sepsis guidelines.
- Follow fever curve, culture data, etc.
- Follow for clinical improvement.
ASCVD
- Stable. No CV issues x years per patient.
- Hold ASA acutely given active bleeding.
- Continue metoprolol with holding parameters.
Paroxysmal Atrial Fibrillation
- Stable. Continue metoprolol as noted above.
- Hold Eliquis as noted above.
Benign Hypertension
- BP on the lower side in the ED. Hold lisinopril acutely.
- Holding parameters for metoprolol as noted above.
Diet-Controlled DM-II
- Listed in med history. On no DM medications.
- Check A1C.
- Follow for elevations in glucose.
DVT Prophylaxis
- Asymmetric LE edema with R > L calf girth. Patient reports recent fall with LEFT leg hematoma - which does not explain discrepancy.
- Check US to rule out DVT.
- Hold on mechanical prophylaxis pending US results.
- Hold on pharm prophylaxis given bleeding.
Code Status: DNR
[2025-03-05 03:18] VITALS: BMI 32.0
[2025-03-05 03:19] VITALS: BP 99/40
[2025-03-05 03:30] VITALS: BMI 32.0
--- NOTE | 2025-03-05 04:18 | PTCARENOTE ---
Received pt. from ED. Pt oriented to unit and call banuelos within reach. pt. care ongoing.
[2025-03-05] MEDS: SYNTHROID 100 MCG PO (05:07)
[2025-03-05] MEDS: STERILE WATER FOR INJECTION 10 ML IV (05:08)
[2025-03-05] MEDS: ROCEPHIN 1000 MG IV (05:08)
[2025-03-05 06:25] LABS: Hematocrit 24.9 % (39.0-52.0); Hemoglobin 7.9 g/dL (13.0-18.0); Mean Corp Hgb Conc. 31.7 g/dL (33.0-37.0); Mean Corpuscular Volume 100.8 fL (80.0-94.0); Platelet Count 139 10^3/uL (130-400); Red Cell Dist. Width 15.1 % (11.5-14.5)
[2025-03-05 06:35] LABS: INR 1.52; PT 18.8 Sec (11.4-14.6)
[2025-03-05 06:36] LABS: APTT 34.3 Sec (23.4-35.0)
[2025-03-05 06:52] LABS: Blood Urea Nitrogen 21 mg/dl (9-20); Calcium 8.2 mg/dl (8.4-10.2); Carbon Dioxide 23 mmol/L (22-30); Chloride 101 mmol/L (98-107); Estimated Creatinine Clearance 52 ml/min; Glucose 117 mg/dl (70-99); Potassium 4.4 mmol/L (3.5-5.1); Sodium 130 mmol/L (135-145); eGFR > 60.00
[2025-03-05 07:00] VITALS: BP 106/87
[2025-03-05 08:11] LABS: Glucose - Point of Care 129 mg/dl (70-99)
[2025-03-05] MEDS: PROSCAR 5 MG PO (08:22)
[2025-03-05] MEDS: TOPROL XL 25 MG PO (08:22)
[2025-03-05 09:09] LABS: Glycohemoglobin (HgbA1c) 5.5 % (4.0-5.6)
--- NOTE | 2025-03-05 10:50 | CM ---
Addendum entered by Adonay Cavanaugh 03/05/25 14:02:
Per nurse, patient's daughter, Cynthia, is wanting to explore rehab for patient
Met w/ Cynthia and patient bedside, Cynthia confirmed she's a rehab nurse at [facility] where patient's spouse is residing. Cynthia patient has been falling at home, limited vision and needs rehab at d/c. Cynthia stated if patient doesn't qualify
for rehab she may have to explore respite care as she works [employer].
PT ordered, will await recommendations
Original Note:
Patient seen bedside, initial assessment completed. Patient is an 84y M with PMH significant for ASCVD, A-Fib and hypertension who presents to ED complaining of difficulty urinating and grossly bloody urine.
Patient resides alone in a single story home, 2 steps to enter. Patient's spouse resides at [facility], where one of their daughters is a nurse there. Patient is independent w/ the use of a cane when he needs to navigate around objects. Patient is
independent w/ ADLs and personal care. Patient has a shower chair and grab bar in the bathroom.
Denies SNF/HC hx.
Address, points of contact and insurance verified
PCP: Mamadou Mi
Pharmacy: [facility]
Plan: Home, no needs anticipated
--- NOTE | 2025-03-05 14:04 | CONS.URO ---
Consultation
-
Date/Time Consultation Performed: 03/05/2026 1130
Performing Provider: Cleve
Reason for Consultation: hematuria
Medical History
History of Present Illness
ED note: 'presents to ED complaining of difficulty urinating and grossly bloody urine. Patient underwent TURP here at on 02/22/25. He was discharged with Mark in place. He was seen in the office on Saturday of this week and his Mrak was
removed at that time. Patient was advised to straight cath himself at home twice daily thereafter. He states that he had significant difficulty performing the procedure on his own due to vision limitations. He has not successfully performed a
catheterization since that time. Patient states that he was initially passing good volumes of urine. However, this significantly decreased throughout the week.
Today he noted very little urine output with some passage of clots and presented to the ED for further evaluation.'
Past Medical History
Past Medical History: Other (ASCVD Hypertension Paroxysmal Atrial Fibrillation Hypertension Diet-Controlled DM-II Hypothyroidism)
Past Surgical History: Other (TURP (02/22/25) CABG x 3 TAVR Bilateral TKA T&A Cataracts)
Allergies/Home Medications
Allergies
Allergy/AdvReac Type Severity Reaction Status Date / Time
No Known Allergies Allergy Verified 03/04/25 23:05
Home Medications
�Medication �Instructions �Recorded �Confirmed �Type
aspirin 81 mg chewable tablet 81 mg PO QPM Blood clot 07/19/20 03/05/25 History
(Reuben Chewable Low Dose Aspirin) prevention/tx
atorvastatin 80 mg tablet 80 mg PO QPM High cholesterol 07/19/20 03/05/25 History
ezetimibe 10 mg tablet 10 mg PO QPM High cholesterol 07/19/20 03/05/25 History
finasteride 5 mg tablet 5 mg PO DAILY PROSTATE 07/19/20 03/05/25 History
levothyroxine 100 mcg tablet 100 mcg PO DAILY Thyroid 07/19/20 03/05/25 History
lisinopril 5 mg tablet 5 mg PO DAILY Blood pressure 07/19/20 03/05/25 History
metoprolol succinate 25 mg 25 mg PO DAILY Blood pressure 07/19/20 03/05/25 History
tablet,extended release 24 hr
vit C 250 mg-vit E 90 mg-zinc 40 1 ea PO BID Supplement 07/19/20 03/05/25 History
mg-copper 1 [id number]
capsule (PreserVision AREDS-2)
apixaban 5 mg tablet (Eliquis) 5 mg PO BID Blood clot 08/08/20 03/05/25 History
Held on 02/24/25. prevention/tx
Instructions: Resume on
02/27/25.
furosemide 20 mg tablet (Lasix) 20 mg PO DAILY PRN Fluid 08/12/20 03/05/25 History
retention/Swelling
tamsulosin 0.4 mg capsule 0.4 mg PO HS 02/19/25 03/05/25 History
Physical Exam
Vital Signs
Vital Signs
Temp Pulse Resp BP Pulse Ox
98.5 F 76 17 106/87 98
03/05/25 07:00 03/05/25 08:22 03/05/25 07:00 03/05/25 08:22 03/05/25 07:00
Lab / Testing Results
Laboratory Results
03/05/25 06:03
03/05/25 06:03
Physical Exam
General: No Apparent Distress
GI: Soft and Non Tender
Genito-urinary: Mark Catheter (pink urine with slow CBI)
Assessment / Plan
-
post-TURP hematuria and suspected UTI
Rec: CBI for now
empiric abx
Data Reviewed
-
Lab Data: Labs Reviewed
Old Records: Reviewed
--- NOTE | 2025-03-05 14:08 | W.PN.UPDATE ---
Update Note
Progress Note Update
gross hematuria after recent turp
now on [address] way villalobos for cbi
uro ocnsulted
npo may need to go to the OR for cysto
iv atb
follow up on cultures
[2025-03-05 15:00] VITALS: BP 96/74
--- NOTE | 2025-03-05 16:19 | PTCARENOTE ---
Patient still presenting with bright blood colored urine, with CBI running. Hgb 7.9 this morning. BP soft but on trend. This RN suggesting an H & H sooner than the morning to the MD. No new orders placed.
[2025-03-05] MEDS: LIPITOR 80 MG PO (18:29)
[2025-03-05 20:40] LABS: Hematocrit 24.8 % (39.0-52.0); Hemoglobin 8.1 g/dL (13.0-18.0)
[2025-03-05] MEDS: FLOMAX 0.4 MG PO (21:01)
[2025-03-05 23:03] VITALS: BP 126/88
[2025-03-06] MEDS: NSS 1000 IV ×2 (02:42→07:42)
[2025-03-06] MEDS: STERILE WATER FOR INJECTION 10 ML IV (05:11)
[2025-03-06] MEDS: SYNTHROID 100 MCG PO (05:11)
[2025-03-06] MEDS: ROCEPHIN 1000 MG IV (05:11)
[2025-03-06 05:25] VITALS: BMI 32.0
[2025-03-06 07:00] VITALS: BP 136/85
[2025-03-06] MEDS: PROSCAR 5 MG PO (07:39)
[2025-03-06] MEDS: TOPROL XL 25 MG PO (07:39)
--- NOTE | 2025-03-06 08:10 | W.PN.HOSP.TC ---
Today's Communication/Plan
-
Given significant atherosclerotic cardiovascular disease history including but not limited to CABG, resume Aspirin. Dr. Kaur is okay with this.
Continue Ampicillin antibiotics.
Continue CBI and wean as able.
Assessment / Plan
Assessment / Plan
Physical Exam
General: Other (84y M in no acute distress)
HEENT: Moist mucous membranes
Respiratory: Clear Bilaterally
Cardiac: S1/S2 and Regular Rhythm
GI: Soft, Non Tender, Non Distended and Normal Bowel Sounds
Genitourinary: Mark in place draining clear to pink urine (previously it was grossly bloody)
Musculoskeletal: No Cyanosis and Other (R > L LE edema. No calf tenderness / cords.)
Neuro: AO x 3
Assessment/Plan
84 y/o male with past medical history significant for ASCVD, A-Fib and hypertension who presented to [facility] emergency room complaining of difficulty urinating and grossly bloody urine. Patient underwent TURP here at [facility] on 02/22/25. He was discharged
with Mark Catheter in place. He was seen in the office on 03/11/25, and his Mark Catheter was removed at that time. Patient was advised to straight cath himself at home twice daily thereafter. He stated that he had significant difficulty
performing the procedure on his own due to vision limitations. He had not successfully performed a catheterization since that time. Patient stated that he was initially passing good volumes of urine; however, this significantly decreased throughout
the week. On 03/14/25, he noted very little urine output with some passage of clots and presented to the [facility] ED for further evaluation. At the time of admission, he denied any pain, abdominal pain, flank pain, dysuria, etc, but he did say that had
some chills at home.
Gross Hematuria after recent TURP 02/22/25
Difficulty Urinating
BPH s/p TURP 02/22/25
- Mark re-placed in the ED for return of grossly bloody urine and clot.
- CBI to keep urine light red / free from clots.
- Continue to hold Eliquis (last dose was 03/04/25 morning).
- Follow serial H&H and monitor for improvement in hematuria.
- Continue finasteride / tamsulosin.
- Urology consulted for additional recommendations.
Complicated UTI
Enterococcal bacteremia
Sepsis, POA
- Patient presented with fever (103 F), leukocytosis, tachycardia and tachypnea.
- On 03/06/25, stopped Ceftriaxone
- Start Ampicillin IV 2 gram Q4H
- Follow repeat blood cultures
- Will need echo
- Appreciate ID consultation
ASCVD
History of NSTEMI, Multivessel CAD and CABG
- Stable. No CV issues x years per patient.
- Resume Aspirin -- on 03/06/[address] Kaur who said okay to resume Aspirin 81 mg daily
- Continue metoprolol with holding parameters.
History of Ischemic cardiomyopathy with EF 45%
Paroxysmal Atrial Fibrillation
- Stable. Continue metoprolol as noted above.
- Hold Eliquis as noted above.
History of Aortic Valve Replacement
Benign Hypertension
- BP on the lower side in the ED. Hold lisinopril acutely.
- Holding parameters for metoprolol as noted above.
Diet-Controlled DM-II
- Listed in med history. On no DM medications.
- A1c 5.5% -- but this may not be reliable in setting of patient's blood loss
- Follow for elevations in glucose.
Hyperlipidemia
- Continue home Atorvastatin
- Continue home Ezetimibe
Osteoarthritis
Hypothyroidism
- Continue Levothyroxine
DVT Prophylaxis
- Asymmetric LE edema with R > L calf girth. Patient reports recent fall with LEFT leg hematoma - which does not explain discrepancy.
- US of lower extremities showed NO DVT.
- Start mechanical prophylaxis
- Hold on pharmacologic prophylaxis given bleeding.
Code Status: DNR
Anticipated Discharge: > 48 hours
Subjective/Interval History
-
Date of Service: March 06, 2025
Patient was seen and examined. He denied any new symptoms or complaints.
Objective Data
-
Labs:
Laboratory Results
03/05/25 03/06/25
20:30 07:56
WBC Pending
Hgb 8.1 L Pending
Hct 24.8 L Pending
Plt Count Pending
Sodium Pending
Potassium Pending
Chloride Pending
Carbon Dioxide Pending
BUN Pending
Creatinine Pending
Glucose Pending
Calcium Pending
Vital Signs:
Vital Signs
Temp Pulse Resp BP Pulse Ox
99.4 F 76 16 136/84 94
03/05/25 23:03 03/05/25 23:03 03/05/25 23:03 03/06/25 07:39 03/05/25 23:03
I&O
03/05/25 03/06/25 03/07/25
06:59 06:59 06:59
Intake Total 300 / 300 1960 / 1960
Output Total 450 / 450 3000 / 3000
Balance -150 / -150 -1040 / -1040
[2025-03-06 08:11] LABS: Hematocrit 28.4 % (39.0-52.0); Hemoglobin 8.8 g/dL (13.0-18.0); Mean Corp Hgb Conc. 31.0 g/dL (33.0-37.0); Mean Corpuscular Volume 103.6 fL (80.0-94.0); Platelet Count 141 10^3/uL (130-400); Red Cell Dist. Width 15.5 % (11.5-14.5)
[2025-03-06 08:38] LABS: Blood Urea Nitrogen 16 mg/dl (9-20); Calcium 8.4 mg/dl (8.4-10.2); Carbon Dioxide 22 mmol/L (22-30); Chloride 102 mmol/L (98-107); Estimated Creatinine Clearance 72 ml/min; Glucose 116 mg/dl (70-99); Potassium 4.3 mmol/L (3.5-5.1); Sodium 130 mmol/L (135-145); eGFR > 60.00
--- NOTE | 2025-03-06 09:20 | W.PN.URO.CBU ---
Today's Communication / Plan
-
treat UTI
hold eliquis
continue CBI- wean as possible
Assessment / Plan
-
post op hematuria/retention
UTI- enterococcus
from hematuria standpoint- pt improved
CT did not show any other concerning problems
has been on rocephin- prob needs different coverage now that cx back with enterococcus
plan to continue cbi and wean as possible
hold eliquis
will observe
Diagnosis
-
Date of Service: March 06, 2025
-
Patient Diagnosis:
urinary retention s/p TURP
hematuria
retention
UTI- enteroccocus
Subjective
-
pt feels a little poorly this am- does have fever
off eliquis- hematuria is clearing- on slow drip cbi- clear to light pink
ucx back today- enteroccocus
Objective
-
Vital Signs
Temp Pulse Resp BP Pulse Ox
101.0 F H 81 18 136/84 96
03/06/25 07:00 03/06/25 07:00 03/06/25 07:00 03/06/25 07:39 03/06/25 07:00
Intake and Output
03/05/25 03/06/25 03/07/25
06:59 06:59 06:59
Intake Total 300 / 300 1960 / 1960
Output Total 450 / 450 3000 / 3000
Balance -150 / -150 -1040 / -1040
Intake:
Oral fluids 960 / 960
IV fluids (Total) 300 / 300 1000 / 1000
Output:
True Urine Output from CBI 450 / 450 3000 / 3000
Laboratory Results
03/06/25 07:56
03/06/25 07:56
Review of Systems
-
Constitutional: Fever and Fatigue
Respiratory: No Symptoms
Cardiac: No Symptoms
Abdomen/GI: No Symptoms
Physical Exam
-
General - no acute distress
Abdomen - soft, non-tender
Genitalia - normal- 3 way [address]
[2025-03-06] MEDS: AMPICILLIN 108 MG IV ×4 (09:56→22:25)
--- NOTE | 2025-03-06 12:54 | CON.ID ---
Consultation
-
Date/Time Consultation Requested: 03/06/2025 0823
Date/Time Consultation Performed: 03/06/2025 1255
Requesting Provider: Dr. Westbrook
Performing Provider: Dr. Trammell
Reason for Consultation: Bacteremia
Chief Complaint / Past History
History of Present Illness
Mode Pompa is an 84-year-old male with a significant past medical history of BPH being evaluated in regards to positive blood cultures. History is obtained from chart review, along with patient interview.
The patient recently underwent TURP on 02/22/2025. In the postop period he had a Mark catheter, but was seen in the Urology office on 03/02 and the Mark catheter was pulled. He was only partially able to void thereafter and he was given
instructions for self catheterization BID.
He presents to the emergency room on 03/04 after experiencing significant retention and the development of malaise and chills and suspected fevers. In the emergency room, he was found to have a marked leukocytosis and blood cultures obtained at the
time of admission are now positive for Enterococcus faecalis. Infectious Diseases is asked to comment upon further workup and antimicrobial management.
At present, patient continues to feel unwell. He did have a fever earlier today to 101.1. He denies any headache. He denies any chest pain or shortness of breath. He denies any abdominal pain or flank pain.
Past History
Additional Past Medical History:
A-fib
CAD; Hx SC
GERD
HTN
HLD
Hypothyroidism
Anemia
BPH
Additional Past Surgical History:
Cystolitholapaxy, TURP (02/22/2025)
CABG
TAVR (2020)
Tonsillectomy
Allergy History:
No Known Allergies Allergy (Verified 03/04/25 23:05)
Medications Reviewed: Yes
Current Antibiotics:
Ampicillin 2 gm IV q.4 hours
Ceftriaxone 1 gm IV q.24 hours
Social History
Tobacco: Former Smoker
Alcohol: Occasional
Drug: None
Living: Alone
Employment: Retired
Family History
Family History: Not Pertinent
Review of Systems
Vital Signs
Temp Pulse Resp BP Pulse Ox
101.0 F H 81 18 136/84 96
03/06/25 07:00 03/06/25 07:00 03/06/25 07:00 03/06/25 07:39 03/06/25 07:00
Physical Exam
Physical Exam
Constitutional: No Acute Distress, Comfortable and Non-toxic
Eyes: No Conjunctival Hemorrhage and Sclera Anicteric
Oral: No Thrush and No Ulcers
Cardiovascular: S1/S2; Negative S3/S4
Pulmonary: Clear; Negative Wheezes, Rales or Rhonchi
Gastrointestinal: Soft, Non Tender, Non Distended, Normal Bowel Sounds, No Rebound and No Guarding
Genito-Urinary: Mark (Triple-lumen) and Turbid Urine
Extremities: Negative Edema, Cyanosis or Erythema
Neurological: Awake and Alert
Psychological: Calm
Lab / Diagnostic Study Results
03/06/25 07:56
03/06/25 07:56
Abs Immat Gran (auto) 0.1 10^3/uL (0-0.05) H 03/04/25 23:13
Absolute Neuts (auto) 14.3 10^3/uL (1.4-6.5) H 03/04/25 23:13
Absolute Lymphs (auto) 0.2 10^3/uL (1.2-3.4) L 03/04/25 23:13
Absolute Monos (auto) 0.3 10^3/uL (0.1-0.6) 03/04/25 23:13
Absolute Basos (auto) 0.0 10^3/uL (0-0.2) 03/04/25 23:13
Immature Gran % 0.5 % (0-0.5) 03/04/25 23:13
Neutrophils % 95.6 % (42.2-75.2) H 03/04/25 23:13
Lymphocytes % 1.6 % (20.5-51.1) L 03/04/25 23:13
Monocytes % 1.9 % (1.7-9.3) 03/04/25 23:13
Eosinophils % 0.1 % (0-6) 03/04/25 23:13
Basophils % 0.3 % (0-2) 03/04/25 23:13
PT 18.8 Sec (11.4-14.6) H 03/05/25 06:03
INR 1.52 03/05/25 06:03
Lactic Acid 1.4 mmol/L (0.7-2.0) 03/05/25 00:34
Ur Squamous Epith Cells 0-2 /LPF (Few) 03/05/25 00:34
Microbiology Results
Micro:
03/04/25 23:14 Blood Culture - Preliminary
Blood/Venous Enterococcus faecalis
Gram Stain - Preliminary
03/06/25 09:23 Blood Culture - Pending
Blood/Venous
03/06/25 08:44 Blood Culture - Pending
Blood/Venous
03/05/25 00:33 Blood Culture - Preliminary
Blood/Venous No Growth in 24 hours- Final report to follow
03/05/25 00:33 Influenza Types A & B (JENNY) - Final
Nasal Swab Negative for Influenza A & B, NAAT
Negative results must be combined with clinical observations
and patient history.
Nucleic Acid Amplification test (NAAT)performed on the
[employer] platform.
Imaging:
03/05/2025 CT abdomen/pelvis without contrast: no evidence of intestinal obstruction, nephrolithiasis, hydronephrosis, cholecystitis or abscess formation. Mark catheter is present within the urinary bladder which is decompressed. Mild prostatic
enlargement. Cholelithiasis without evidence of acute cholecystitis.
Assessment / Plan
Enterococcal bacteremia
Suspected complicated urinary tract infection
Obstructive uropathy
Fever
Leukocytosis
A-fib
CAD; Hx SC
GERD
HTN
HLD
Hypothyroidism
Anemia
BPH
Recommendations:
Continue with ampicillin 2 gm IV q.4 hours.
Repeat blood cultures obtained prior to initiation of ampicillin.
Check ESR and CRP given history of TAVR.
Follow white count and temperature curve.
Patient will need echocardiogram, although wound wait several days.
Further recommendations as additional data is returned.
[2025-03-06 15:00] VITALS: BP 123/78
[2025-03-06] MEDS: LOW STRENGTH ASPIRIN 81 MG PO (16:27)
[2025-03-06] MEDS: LIPITOR 80 MG PO (16:28)
[2025-03-06] MEDS: FLOMAX 0.4 MG PO (22:25)
[2025-03-06 23:07] VITALS: BP 134/68
[2025-03-07] MEDS: AMPICILLIN 108 MG IV ×6 (01:23→21:28)
[2025-03-07] MEDS: SYNTHROID 100 MCG PO (05:12)
[2025-03-07 06:00] VITALS: BMI 31.9
[2025-03-07 06:34] LABS: Hematocrit 25.9 % (39.0-52.0); Hemoglobin 8.8 g/dL (13.0-18.0); Mean Corp Hgb Conc. 34.0 g/dL (33.0-37.0); Mean Corpuscular Volume 98.5 fL (80.0-94.0); Platelet Count 155 10^3/uL (130-400); Red Cell Dist. Width 15.1 % (11.5-14.5)
[2025-03-07 07:02] LABS: Blood Urea Nitrogen 15 mg/dl (9-20); Calcium 8.2 mg/dl (8.4-10.2); Carbon Dioxide 21 mmol/L (22-30); Chloride 103 mmol/L (98-107); Estimated Creatinine Clearance 72 ml/min; Glucose 117 mg/dl (70-99); Potassium 4.3 mmol/L (3.5-5.1); Sodium 131 mmol/L (135-145); eGFR > 60.00
--- NOTE | 2025-03-07 07:02 | PTCARENOTE ---
On 03/07/2025 around 6am, the patient complained that he felt 'wet', after verification, the ballon was deflated, the nurse added 10cc of air to it. The absorbing pad under the patient was saturated, including the fitted sheet. This explain the
difference of fluid between the infused irrigation ([id number]) and the output ([id number]). The day shift nurse was informed of the situation.
[2025-03-07 07:04] LABS: C-Reactive Protein 77.80 mg/L (0.0-10.00)
[2025-03-07 07:30] VITALS: BP 123/68
[2025-03-07] MEDS: PROSCAR 5 MG PO (08:07)
[2025-03-07] MEDS: TOPROL XL 25 MG PO (08:07)
--- NOTE | 2025-03-07 09:05 | W.PN.URO.CBU ---
Today's Communication / Plan
-
wean cbi
cotninue antibx
Assessment / Plan
-
post op hematuria/retention
UTI/bacteremia- enterococcus
from hematuria standpoint- pt improved- with hand irrigation this am- seems to be resolved and hgb stable
CT did not show any other concerning problems
ID now following for enterococcal bacteremia
eiquis on hold/asa restarted
had discussed going to OR today for cysto/clot kranthi and fulguration- given that i was able to evac what appears to be all the old clot at bedside with clear urine and stable hgb- and recent adjustment of antibx for bacteremia and wis to avoid
instrumentatio- will observe again today with hopes of stopping cbi tomorrow
reviewed in full with pt and nursing
Diagnosis
-
Date of Service: March 07, 2025
-
Patient Diagnosis:
urinary retention s/p TURP
hematuria
retention
UTI/bacteremia- enteroccocus
Subjective
-
pt still with some intermittent fevers
feels weak
hgb stable
blood cx's + for enterococcus- started on amp yesterday
had sig cath leak last pm- this am- repositioned villalobos and hand irrigated large amount of old clot- urine then clear on minimal cbi
Objective
-
Vital Signs
Temp Pulse Resp BP Pulse Ox
98.6 F 77 18 134/68 96
03/06/25 23:07 03/06/25 23:07 03/06/25 23:07 03/06/25 23:07 03/06/25 23:07
Intake and Output
03/06/25 03/07/25 03/08/25
06:59 06:59 06:59
Intake Total 1960 / 1960 1180 / 1180
Output Total 3000 / 3000
Balance -1040 / -1040 1180 / 1180
Intake:
Oral fluids 960 / 960 1180 / 1180
IV fluids (Total) 1000 / 1000
Output:
True Urine Output from CBI 3000 / 3000
Laboratory Results
03/07/25 05:20
03/07/25 05:20
Review of Systems
-
Constitutional: Fever and Fatigue
Respiratory: No Symptoms
Cardiac: No Symptoms
Abdomen/GI: No Symptoms
Physical Exam
-
General - no acute distress
Abdomen - soft, non-tender
Genitalia - normal- 3 way [address]= clear on minimal cbi
Skin - warm & dry with no rash
Neuro - AOx3, no motor deficits
Extremities - no clubbing, no cyanosis, no edema
[2025-03-07 15:30] VITALS: BP 107/52
[2025-03-07 16:07] VITALS: PULSE 55; O2SAT 98
[2025-03-07] MEDS: LOW STRENGTH ASPIRIN 81 MG PO (16:53)
[2025-03-07] MEDS: LIPITOR 80 MG PO (16:53)
--- NOTE | 2025-03-07 17:59 | W.PN.HOSP.TC ---
Today's Communication/Plan
-
See plan
Assessment / Plan
Assessment / Plan
Physical Exam
General: Other (84y M in no acute distress)
HEENT: Moist mucous membranes
Respiratory: Clear Bilaterally
Cardiac: S1/S2 and Regular Rhythm
GI: Soft, Non Tender, Non Distended and Normal Bowel Sounds
Genitourinary: Mark in place draining clear to pink urine (previously it was grossly bloody)
Musculoskeletal: No Cyanosis and Other (R > L LE edema. No calf tenderness / cords.)
Neuro: AO x 3
Assessment/Plan
84 y/o male with past medical history significant for ASCVD, A-Fib and hypertension who presented to [facility] emergency room complaining of difficulty urinating and grossly bloody urine. Patient underwent TURP here at [facility] on 02/22/25. He was discharged
with Mark Catheter in place. He was seen in the office on 03/11/25, and his Mark Catheter was removed at that time. Patient was advised to straight cath himself at home twice daily thereafter. He stated that he had significant difficulty
performing the procedure on his own due to vision limitations. He had not successfully performed a catheterization since that time. Patient stated that he was initially passing good volumes of urine; however, this significantly decreased throughout
the week. On 03/14/25, he noted very little urine output with some passage of clots and presented to the [facility] ED for further evaluation. At the time of admission, he denied any pain, abdominal pain, flank pain, dysuria, etc, but he did say that had
some chills at home.
Gross Hematuria after recent TURP 02/22/25
Difficulty Urinating
BPH s/p TURP 02/22/25
- Mark re-placed in the ED for return of grossly bloody urine and clot.
- Continue CBI to keep urine light red / free from clots.
- Continue to hold Eliquis (last dose was 03/04/25 morning).
- Follow serial H&H and monitor for improvement in hematuria.
- Continue finasteride / tamsulosin.
- Urology consulted for additional recommendations.
Complicated UTI
Enterococcal bacteremia
Sepsis, POA
- Patient presented with fever (103 F), leukocytosis, tachycardia and tachypnea.
- On 03/06/25, stopped Ceftriaxone
- Ampicillin IV 2 gram Q4H started on 03/06/25
- Follow repeat blood cultures -- negative so far
- Will need echo
- Appreciate ID consultation
ASCVD
History of NSTEMI, Multivessel CAD and CABG
- Stable. No CV issues x years per patient.
- On 03/06/[address] Kaur who said okay to resume Aspirin 81 mg daily -- resumed
- Continue metoprolol with holding parameters.
History of Ischemic cardiomyopathy with EF 45%
Paroxysmal Atrial Fibrillation
- Stable. Continue metoprolol as noted above.
- Hold Eliquis as noted above.
History of Aortic Valve Replacement
Benign Hypertension
- BP on the lower side in the ED. Hold lisinopril acutely.
- Holding parameters for metoprolol as noted above.
Diet-Controlled DM-II
- Listed in med history. On no DM medications.
- A1c 5.5% -- but this may not be reliable in setting of patient's blood loss
- Follow for elevations in glucose.
Hyperlipidemia
- Continue home Atorvastatin
- Continue home Ezetimibe
Osteoarthritis
Hypothyroidism
- Continue Levothyroxine
DVT Prophylaxis
- Asymmetric LE edema with R > L calf girth. Patient reports recent fall with LEFT leg hematoma - which does not explain discrepancy.
- US of lower extremities showed NO DVT.
- Continue mechanical prophylaxis (continue SCDs)
- Hold on pharmacologic prophylaxis given bleeding.
Code Status: DNR
Anticipated Discharge: 24 - 48 hours
Subjective/Interval History
-
Date of Service: March 07, 2025
Patient was seen and examined. He denied any new symptoms or complaints.
Objective Data
-
Labs:
Laboratory Results
03/07/25
05:20
WBC 11.2 H
Hgb 8.8 L
Hct 25.9 L
Plt Count 155
Sodium 131 L
Potassium 4.3
Chloride 103
Carbon Dioxide 21 L
BUN 15
Creatinine 0.8
Glucose 117 H
Calcium 8.2 L
Vital Signs:
Vital Signs
Temp Pulse Resp BP Pulse Ox
98.0 F 63 16 107/52 95
03/07/25 15:30 03/07/25 15:30 03/07/25 15:30 03/07/25 15:30 03/07/25 15:30
I&O
03/06/25 03/07/25 03/08/25
06:59 06:59 06:59
Intake Total 1960 / 1959 1180 / 1180
Output Total 3000 / 3000
Balance -1040 / -1040 1180 / 1180
[2025-03-07] MEDS: ZETIA 10 MG PO (19:31)
[2025-03-07] MEDS: FLOMAX 0.4 MG PO (21:28)
[2025-03-07 23:00] VITALS: BP 130/79
[2025-03-08] MEDS: AMPICILLIN 108 MG IV ×6 (01:39→21:12)
[2025-03-08 03:44] VITALS: BMI 32.5
[2025-03-08] MEDS: SYNTHROID 100 MCG PO (06:12)
[2025-03-08 06:56] LABS: Hematocrit 24.6 % (39.0-52.0); Hemoglobin 7.8 g/dL (13.0-18.0); Mean Corp Hgb Conc. 31.7 g/dL (33.0-37.0); Mean Corpuscular Volume 100.8 fL (80.0-94.0); Platelet Count 156 10^3/uL (130-400); Red Cell Dist. Width 15.1 % (11.5-14.5)
--- NOTE | 2025-03-08 07:02 | W.PN.URO.CBU ---
Today's Communication / Plan
-
continue antibx
observe off cbi
Assessment / Plan
-
post op hematuria/retention
UTI/bacteremia- enterococcus
from hematuria standpoint- pt improved- with hand irrigation this am- seems to be resolved and hgb stable- will stop cbi now
CT did not show any other concerning problems
ID now following for enterococcal bacteremia
eliquis on hold/asa restarted
observe off CBI- if rebleeds may need OR cysto
Diagnosis
-
Date of Service: March 08, 2025
-
Patient Diagnosis:
urinary retention s/p TURP
hematuria
retention
UTI/bacteremia- enteroccocus
Subjective
-
pt comfortable
no fevers and wbc normalized
villalobos has been draining with no sig leak- urine harjinder
Objective
-
Vital Signs
Temp Pulse Resp BP Pulse Ox
98.1 F 79 18 130/79 91
03/07/25 23:00 03/07/25 23:00 03/07/25 23:00 03/07/25 23:00 03/07/25 23:00
Intake and Output
03/07/25 03/08/25 03/09/25
06:59 06:59 06:59
Intake Total 1180 / 1180 1300 / 1300
Output Total 1500 / 1500 1900 / 1900
Balance -320 / -320 -600 / -600
Intake:
Oral fluids 1180 / 1180 1200 / 1200
IV piggybacks 100 / 100
Output:
True Urine Output from CBI 1500 / 1500 1900 / 1900
Laboratory Results
03/08/25 06:01
Review of Systems
-
Constitutional: Fatigue
Respiratory: No Symptoms
Cardiac: No Symptoms
Abdomen/GI: No Symptoms
Physical Exam
-
General - no acute distress
Abdomen - soft, non-tender
Genitalia - [address]
[2025-03-08 07:10] LABS: Blood Urea Nitrogen 15 mg/dl (9-20); Calcium 8.2 mg/dl (8.4-10.2); Carbon Dioxide 24 mmol/L (22-30); Chloride 103 mmol/L (98-107); Estimated Creatinine Clearance 64 ml/min; Glucose 99 mg/dl (70-99); Potassium 4.1 mmol/L (3.5-5.1); eGFR > 60.00
[2025-03-08 07:15] LABS: Sodium 130 mmol/L (135-145)
[2025-03-08 07:30] VITALS: BP 158/85
--- NOTE | 2025-03-08 07:49 | PTCARENOTE ---
CBI clamped by , for surgery today.
--- NOTE | 2025-03-08 07:51 | W.PN.HOSP.TC ---
Today's Communication/Plan
-
See plan
Assessment / Plan
Assessment / Plan
Physical Exam
General: Not in acute distress
HEENT: Moist mucous membranes
Respiratory: Clear Bilaterally
Cardiac: S1/S2 and Regular Rhythm
GI: Soft, Non Tender, Non Distended and Normal Bowel Sounds
Genitourinary: Mark in place draining clear to pink urine (previously it was grossly bloody)
Musculoskeletal: No Cyanosis and Other (R > L LE edema. No calf tenderness / cords.)
Neuro: AO x 3
Assessment/Plan
84 y/o male with past medical history significant for ASCVD, A-Fib and hypertension who presented to [facility] emergency room complaining of difficulty urinating and grossly bloody urine. Patient underwent TURP here at [facility] on 02/22/25. He was discharged
with Mark Catheter in place. He was seen in the office on 03/11/25, and his Mark Catheter was removed at that time. Patient was advised to straight cath himself at home twice daily thereafter. He stated that he had significant difficulty
performing the procedure on his own due to vision limitations. He had not successfully performed a catheterization since that time. Patient stated that he was initially passing good volumes of urine; however, this significantly decreased throughout
the week. On 03/14/25, he noted very little urine output with some passage of clots and presented to the [facility] ED for further evaluation. At the time of admission, he denied any pain, abdominal pain, flank pain, dysuria, etc, but he did say that had
some chills at home.
Gross Hematuria after recent TURP 02/22/25
Yes, Hematuria is related to/associated with/exacerbated by Eliquis
Difficulty Urinating
BPH s/p TURP 02/22/25
- Mark re-placed in the ED for return of grossly bloody urine and clot.
- No need for OR as per urologist Dr. Elizabeth today (since no active bleeding while patient is on Aspirin 81 mg daily)
- Continue CBI but will need to do CBI clamp trial overnight -- possible voiding trial tomorrow
- Continue to hold Eliquis (last dose was 03/04/25 morning).
- Follow serial H&H and monitor for improvement in hematuria.
- Continue finasteride / tamsulosin.
- Urology consulted for additional recommendations.
Complicated UTI
UTI is related to/associated with/due to self catheterization
Enterococcal bacteremia
Sepsis, POA
- Patient presented with fever (103 F), leukocytosis, tachycardia and tachypnea.
- On 03/06/25, stopped Ceftriaxone
- Ampicillin IV 2 gram Q4H started on 03/06/25
- Follow repeat blood cultures -- negative so far
- Check echo
- Appreciate ID consultation
ASCVD
History of NSTEMI, Multivessel CAD and CABG
- Stable. No CV issues x years per patient.
- On 03/06/[address] Kaur who said okay to resume Aspirin 81 mg daily -- resumed
- Continue metoprolol with holding parameters.
History of Ischemic cardiomyopathy with EF 45%
Paroxysmal Atrial Fibrillation
- Stable. Continue metoprolol as noted above.
- Hold Eliquis as noted above.
History of Aortic Valve Replacement
Hyponatremia
- Stable
- Continue to monitor BMP
Benign Hypertension
- BP on the lower side in the ED. Hold lisinopril acutely.
- Holding parameters for metoprolol as noted above.
Diet-Controlled DM-II
- Listed in med history. On no DM medications.
- A1c 5.5% -- but this may not be reliable in setting of patient's blood loss
- Follow for elevations in glucose.
Hyperlipidemia
- Continue home Atorvastatin
- Continue home Ezetimibe
Osteoarthritis
Hypothyroidism
- Continue Levothyroxine
DVT Prophylaxis
- Asymmetric LE edema with R > L calf girth. Patient reports recent fall with LEFT leg hematoma - which does not explain discrepancy.
- US of lower extremities showed NO DVT.
- Continue mechanical prophylaxis (continue SCDs)
- Hold on pharmacologic prophylaxis given bleeding.
Code Status: DNR
Anticipated Discharge: 24 - 48 hours
Subjective/Interval History
-
Date of Service: March 08, 2025
Patient was seen and examined. He denied any new symptoms or complaints.
Objective Data
-
Labs:
Laboratory Results
03/08/25
06:01
WBC 8.2
Hgb 7.8 L
Hct 24.6 L
Plt Count 156
Sodium 130 L
Potassium 4.1
Chloride 103
Carbon Dioxide 24
BUN 15
Creatinine 0.9
Glucose 99
Calcium 8.2 L
Vital Signs:
Vital Signs
Temp Pulse Resp BP Pulse Ox
98.1 F 79 18 130/79 91
03/07/25 23:00 03/07/25 23:00 03/07/25 23:00 03/07/25 23:00 03/07/25 23:00
I&O
03/07/25 03/08/25 03/09/25
06:59 06:59 06:59
Intake Total 1180 / 1180 1300 / 1300
Output Total 1500 / 1500 1900 / 1900
Balance -320 / -320 -600 / -600
[2025-03-08] MEDS: TOPROL XL 25 MG PO (07:59)
[2025-03-08] MEDS: PROSCAR 5 MG PO (07:59)
--- NOTE | 2025-03-08 10:52 | PN.CDI ---
CDI
- -
CDI:
Physician Documentation Request
Admit Date: 03/05/25 02:04
Dear Doctor,
Please review the following and provide your response in the progress notes.
Clinical Indicators:
Pt admitted with sepsis, Complicated UTI and Enterococcal bacteremia.
Laboratory Tests
03/04/25 03/06/25 03/08/25
23:13 07:56 06:01
Sodium 131 L 130 L 130 L
Based on the above, could you clarify in the progress notes, the appropriate diagnosis, if significant, that supports the above Lab abnormalities and additional evaluation, monitoring and/or treatment rendered:
Hyponatremia
Insignificant abnormal lab values
Other
Use of terms such as suspected, likely, concern for, or probable (associated with a specific diagnosis that is being evaluated, monitored, or treated as if it exists) are acceptable and can be coded in the inpatient setting, when documented at the
time of discharge.
Thank you,
Cheryl Sanford RN, BSN
CDI Specialist
[place] [facility]
Please use your independent medical judgment in providing your response.
--- NOTE | 2025-03-08 10:57 | PN.CDI ---
CDI
- -
CDI:
Physician Documentation Request
Admit Date: 03/05/25 02:04
Dear Doctor,
Please review the following and provide your response in the progress notes.
Clinical Indicators:
Pt admitted with sepsis, Complicated UTI and Enterococcal bacteremia.
03/07 Progress Note: ' Gross Hematuria after recent TURP 02/22/25... - Continue to hold Eliquis (last dose was 03/04/25 morning).'
Please clarify the relationship between these conditions:
Yes, Hematuria is related to/associated with/exacerbated by Eliquis
No, Hematuria is not related to/associated with/exacerbated by Eliquis but it is due to ___. (Please specify)
Other
Use of terms such as suspected, likely, concern for, or probable (associated with a specific diagnosis that is being evaluated, monitored, or treated as if it exists) are acceptable and can be coded in the inpatient setting, when documented at the
time of discharge.
Thank you,
Cheryl Sanford RN, BSN
CDI Specialist
[place] [facility]
Please use your independent medical judgment in providing your response.
--- NOTE | 2025-03-08 11:06 | PN.CDI ---
CDI
- -
CDI:
Physician Documentation Request
Admit Date: 03/05/25 02:04
Dear Doctor,
Please review the following and provide your response in the progress notes.
Clinical Indicators:
Pt admitted with sepsis, Complicated UTI and Enterococcal bacteremia.
03/04 ER: ' urinary retention after pulling villalobos in office 2 day sago
given isntreuctions to self cath
pt cannot unfortuantely do this, he cannot see well
he reports he only successfully cathed once
he now has hematuria and retention and a fever
soft bp
probably from the catheterizing'
Please clarify the relationship between these conditions:
Yes, UTI is related to/associated with/due to self catheterization.
No, UTI is not related to/associated with/due to self catheterization but it is due to ___. (Please specify)
Other
Use of terms such as suspected, likely, concern for, or probable (associated with a specific diagnosis that is being evaluated, monitored, or treated as if it exists) are acceptable and can be coded in the inpatient setting, when documented at the
time of discharge.
Thank you,
Cheryl Sanford RN, BSN
CDI Specialist
[place] [facility]
Please use your independent medical judgment in providing your response.
--- NOTE | 2025-03-08 12:55 | W.PN.UPDATE ---
Update Note
Progress Note Update
cUTI
Bacteremia
Hematuria w/ clot retention s/p TURP (02/22) potentiated by Eliquis
Mid-day, CBI on scant drip w/ faintly harjinder-tinged outflow.
Not clots or visible hematuria noted in tubing.
Plan:
- Given no active bleeding (ASA resumed) w/o obstruction of catheter, cancel OR plan
- Regular diet ordered
- Continue IV antibiotics for Enteroccocus
- Trend H/H on AM labs
- CBI clamp trial o/n - possible VT in AM
D/w patient at bedside.
--- NOTE | 2025-03-08 13:33 | W.PN.ID1 ---
Date of Service
Date of Service: March 08, 2025
Today's Communication
Continue antibiotics
Assessment / Plan
Enterococcal bacteremia
Suspected complicated urinary tract infection
Obstructive uropathy
Fever
Leukocytosis
A-fib
CAD; Hx [place]
GERD
HTN
HLD
Hypothyroidism
Anemia
BPH
Recommendations:
Continue with ampicillin 2 gm IV q.4 hours.
Repeat blood cultures obtained prior to initiation of ampicillin, although patient previously had been on Zosyn and vancomycin given in the ER.
ESR and CRP somewhat elevated.
Follow white count and temperature curve.
Check echocardiogram
����������������������������������������������������������
Chief Complaint
-: Bacteremia
Subjective / Review of Systems
Review of Systems: No Fever and No Chills
Vital Signs / Physical Exam
Vital Signs
Vital Signs
Temp Pulse Resp BP Pulse Ox
97.8 F 70 18 158/85 94
03/08/25 07:30 03/08/25 07:30 03/08/25 07:30 03/08/25 07:30 03/08/25 07:30
Physical Exam
Constitutional: No Acute Distress, Comfortable, Chronically Ill and Non-toxic
Eyes: Sclera Anicteric; Negative No Conjunctival Hemorrhage
Cardiovascular: S1/S2; Negative S3/S4 or Murmur
Pulmonary: Clear; Negative Wheezes or Rales
Gastrointestinal: Soft and Non Tender
Genito-Urinary: Mark (Triple-lumen) and Hematuria
Extremities: Negative Edema, Cyanosis, Splinter Hemorrhage or Janeway Lesions
Neurological: Awake and Alert
Psychological: Calm
Objective Data
Lab Data
Lab Results
03/08/25 06:01
03/08/25 06:01
ESR 49 mm/hour (0-20) H 03/07/25 05:20
PT 18.8 Sec (11.4-14.6) H 03/05/25 06:03
INR 1.52 03/05/25 06:03
APTT 34.3 Sec (23.4-35.0) 03/05/25 06:03
Estimated Creat Clear 64 ml/min 03/08/25 06:01
Lactic Acid 1.4 mmol/L (0.7-2.0) 03/05/25 00:34
Total Bilirubin 0.6 mg/dl (0.2-1.3) 03/04/25 23:13
AST 26 U/L (17-59) 03/04/25 23:13
ALT 22 U/L (0-50) 03/04/25 23:13
Alkaline Phosphatase 83 U/L (38-126) 03/04/25 23:13
C-Reactive Protein 77.80 mg/L (0.0-10.00) H 03/07/25 05:20
Most recent labs reviewed.
Micro Results:
03/06/25 09:23 Blood Culture - Preliminary
Blood/Venous No Growth in 48 hours- Final report to follow
03/06/25 08:44 Blood Culture - Preliminary
Blood/Venous No Growth in 48 hours- Final report to follow
03/05/25 00:33 Blood Culture - Preliminary
Blood/Venous No Growth in 72 hours- Final report to follow
03/04/25 23:14 Blood Culture - Final
Blood/Venous Enterococcus faecalis
Gram Stain - Final
03/05/25 00:33 Influenza Types A & B (JENNY) - Final
Nasal Swab Negative for Influenza A & B, NAAT
Negative results must be combined with clinical observations
and patient history.
Nucleic Acid Amplification test (NAAT)performed on the
[employer] platform.
Imaging:
03/05/2025 CT abdomen/pelvis without contrast: no evidence of intestinal obstruction, nephrolithiasis, hydronephrosis, cholecystitis or abscess formation. Mark catheter is present within the urinary bladder which is decompressed. Mild prostatic
enlargement. Cholelithiasis without evidence of acute cholecystitis.
--- NOTE | 2025-03-08 15:01 | CM ---
Chart reviewed. Cont IV abx, will need to confirm w/ ID final abx recommendations
[facility] referral reviewed, can accept patient tomorrow. CM provided abx information as requested as SNF would like to do a cost out if patient needs to continue abx at d/c
Updated hospitalist, poss can d/c tomorrow, awaiting ID recs
Plan: D/c to [facility], hopefully tomorrow
[2025-03-08 15:30] VITALS: BP 135/64
[2025-03-08] MEDS: LIPITOR 80 MG PO (17:24)
[2025-03-08] MEDS: ZETIA 10 MG PO (17:24)
[2025-03-08] MEDS: LOW STRENGTH ASPIRIN 81 MG PO (17:24)
[2025-03-08 19:30] VITALS: BP 146/54
[2025-03-08] MEDS: FLOMAX 0.4 MG PO (21:13)
[2025-03-08 23:09] VITALS: BP 130/68
[2025-03-09] MEDS: AMPICILLIN 108 MG IV ×6 (02:03→21:19)
[2025-03-09] MEDS: SYNTHROID 100 MCG PO (06:00)
[2025-03-09 06:28] LABS: Hematocrit 28.7 % (39.0-52.0); Hemoglobin 9.0 g/dL (13.0-18.0); Mean Corp Hgb Conc. 31.4 g/dL (33.0-37.0); Mean Corpuscular Volume 102.1 fL (80.0-94.0); Platelet Count 150 10^3/uL (130-400); Red Cell Dist. Width 14.8 % (11.5-14.5)
[2025-03-09 06:55] LABS: Blood Urea Nitrogen 14 mg/dl (9-20); Calcium 8.5 mg/dl (8.4-10.2); Carbon Dioxide 26 mmol/L (22-30); Chloride 102 mmol/L (98-107); Estimated Creatinine Clearance 64 ml/min; Glucose 123 mg/dl (70-99); Potassium 4.4 mmol/L (3.5-5.1); Sodium 134 mmol/L (135-145); eGFR > 60.00
[2025-03-09 07:15] VITALS: BP 165/94
[2025-03-09] MEDS: TOPROL XL 25 MG PO (08:05)
[2025-03-09] MEDS: PROSCAR 5 MG PO (08:05)
--- NOTE | 2025-03-09 11:25 | W.PN.ID1 ---
Date of Service
Date of Service: March 09, 2025
Today's Communication
Continue antibiotics.
Assessment / Plan
Enterococcal bacteremia
Suspected complicated urinary tract infection
Obstructive uropathy
Fever
Leukocytosis
A-fib
CAD; Hx [place]
GERD
HTN
HLD
Hypothyroidism
Anemia
BPH
Recommendations:
Repeat blood cultures negative x 72 hours.
- Repeat blood cultures obtained prior to initiation of ampicillin, although patient previously had been on Zosyn and vancomycin given in the ER.
Continue with ampicillin 2 gm IV q.4 hours.
ESR and CRP somewhat elevated.
Follow white count and temperature curve.
Echocardiogram ordered.
����������������������������������������������������������
Chief Complaint
-: Bacteremia
Subjective / Review of Systems
Review of Systems: No Fever and No Chills
Vital Signs / Physical Exam
Vital Signs
Vital Signs
Temp Pulse Resp BP Pulse Ox
98.0 F 71 18 153/82 94
03/09/25 07:15 03/09/25 08:05 03/09/25 07:15 03/09/25 08:05 03/09/25 07:15
Physical Exam
Constitutional: No Acute Distress, Comfortable, Chronically Ill and Non-toxic
Eyes: Sclera Anicteric; Negative No Conjunctival Hemorrhage
Cardiovascular: S1/S2; Negative S3/S4 or Murmur
Pulmonary: Clear; Negative Wheezes or Rales
Gastrointestinal: Soft and Non Tender
Genito-Urinary: Mark (Triple-lumen) and Hematuria
Extremities: Negative Edema, Cyanosis, Splinter Hemorrhage or Janeway Lesions
Neurological: Awake and Alert
Psychological: Calm
Objective Data
Lab Data
Lab Results
03/09/25 06:13
03/09/25 06:13
ESR 49 mm/hour (0-20) H 03/07/25 05:20
PT 18.8 Sec (11.4-14.6) H 03/05/25 06:03
INR 1.52 03/05/25 06:03
APTT 34.3 Sec (23.4-35.0) 03/05/25 06:03
Estimated Creat Clear 64 ml/min 03/09/25 06:13
Lactic Acid 1.4 mmol/L (0.7-2.0) 03/05/25 00:34
Total Bilirubin 0.6 mg/dl (0.2-1.3) 03/04/25 23:13
AST 26 U/L (17-59) 03/04/25 23:13
ALT 22 U/L (0-50) 03/04/25 23:13
Alkaline Phosphatase 83 U/L (38-126) 03/04/25 23:13
C-Reactive Protein 77.80 mg/L (0.0-10.00) H 03/07/25 05:20
Most recent labs reviewed.
Micro Results:
03/06/25 09:23 Blood Culture - Preliminary
Blood/Venous No Growth in 72 hours- Final report to follow
03/06/25 08:44 Blood Culture - Preliminary
Blood/Venous No Growth in 72 hours- Final report to follow
03/05/25 00:33 Blood Culture - Preliminary
Blood/Venous No Growth in 4 days- Final report to follow
03/04/25 23:14 Blood Culture - Final
Blood/Venous Enterococcus faecalis
Gram Stain - Final
03/05/25 00:33 Influenza Types A & B (JENNY) - Final
Nasal Swab Negative for Influenza A & B, NAAT
Negative results must be combined with clinical observations
and patient history.
Nucleic Acid Amplification test (NAAT)performed on the
[employer] platform.
Imaging:
03/05/2025 CT abdomen/pelvis without contrast: no evidence of intestinal obstruction, nephrolithiasis, hydronephrosis, cholecystitis or abscess formation. Mark catheter is present within the urinary bladder which is decompressed. Mild prostatic
enlargement. Cholelithiasis without evidence of acute cholecystitis.
--- NOTE | 2025-03-09 14:10 | CM ---
Reviewed the chart notes and spoke with the patient's daughter Cynthia via telephone. Discuss that per ID waiting on final culture for length of need on IV abx. Sent message in [facility] for Theo regarding above. CM continues to be available
to patient/family and is monitoring medical plan for needs at discharge.
Plan: Discharge to [facility] one medically stable. No precert required.
--- NOTE | 2025-03-09 14:19 | W.PN.HOSP.TC ---
Today's Communication/Plan
-
Await echocardiogram
Continue IV antibiotics
Follow blood cultures
Assessment / Plan
Assessment / Plan
Physical Exam
General: Not in acute distress
HEENT: Moist mucous membranes
Respiratory: Clear Bilaterally
Cardiac: S1/S2 and Regular Rhythm
GI: Soft, Non Tender, Non Distended and Normal Bowel Sounds
Genitourinary: Mark in place draining clear to pink urine (previously it was grossly bloody)
Musculoskeletal: No Cyanosis and Other (R > L LE edema. No calf tenderness / cords.)
Neuro: AO x 3
Assessment/Plan
84 y/o male with past medical history significant for ASCVD, A-Fib and hypertension who presented to [facility] emergency room complaining of difficulty urinating and grossly bloody urine. Patient underwent TURP here at [facility] on 02/22/25. He was discharged
with Mark Catheter in place. He was seen in the office on 03/11/25, and his Mark Catheter was removed at that time. Patient was advised to straight cath himself at home twice daily thereafter. He stated that he had significant difficulty
performing the procedure on his own due to vision limitations. He had not successfully performed a catheterization since that time. Patient stated that he was initially passing good volumes of urine; however, this significantly decreased throughout
the week. On 03/14/25, he noted very little urine output with some passage of clots and presented to the [facility] ED for further evaluation. At the time of admission, he denied any pain, abdominal pain, flank pain, dysuria, etc, but he did say that had
some chills at home.
Gross Hematuria after recent TURP 02/22/25
Yes, Hematuria is related to/associated with/exacerbated by Eliquis
Difficulty Urinating
BPH s/p TURP 02/22/25
- Mark re-placed in the ED for return of grossly bloody urine and clot.
- No need for OR as per urologist Dr. Elizabeth (since no active bleeding while patient is on Aspirin 81 mg daily)
- CBI clamped today -- possible voiding trial tomorrow
- Continue to hold Eliquis (last dose was 03/04/25 morning).
- Follow serial H&H and monitor for improvement in hematuria.
- Continue finasteride / tamsulosin.
- Urology consulted for additional recommendations.
Complicated UTI
UTI is related to/associated with/due to self catheterization
Enterococcal bacteremia
Sepsis, POA
- Patient presented with fever (103 F), leukocytosis, tachycardia and tachypnea.
- On 03/06/25, stopped Ceftriaxone
- Ampicillin IV 2 gram Q4H started on 03/06/25 -- continue
- Follow repeat blood cultures -- negative so far
- Echo has been ordered to check for vegetations
- Appreciate ID consultation
ASCVD
History of NSTEMI, Multivessel CAD and CABG
- Stable. No CV issues x years per patient.
- On 03/06/[address] Kaur who said okay to resume Aspirin 81 mg daily -- resumed
- Continue metoprolol with holding parameters.
History of Ischemic cardiomyopathy with EF 45%
Paroxysmal Atrial Fibrillation
- Stable. Continue metoprolol as noted above.
- Hold Eliquis as noted above.
History of Aortic Valve Replacement
Hyponatremia
- Stable
- Continue to monitor BMP
Benign Hypertension
- BP on the lower side in the ED. Hold lisinopril acutely.
- Holding parameters for metoprolol as noted above.
Diet-Controlled DM-II
- Listed in med history. On no DM medications.
- A1c 5.5% -- but this may not be reliable in setting of patient's blood loss
- Follow for elevations in glucose.
Hyperlipidemia
- Continue home Atorvastatin
- Continue home Ezetimibe
Osteoarthritis
Hypothyroidism
- Continue Levothyroxine
DVT Prophylaxis
- Asymmetric LE edema with R > L calf girth. Patient reports recent fall with LEFT leg hematoma - which does not explain discrepancy.
- US of lower extremities showed NO DVT.
- Continue mechanical prophylaxis (continue SCDs)
- Hold on pharmacologic prophylaxis given bleeding.
Code Status: DNR
Anticipated Discharge: 24 - 48 hours
Subjective/Interval History
-
Date of Service: March 09, 2025
Patient was seen and examined. He denied any new symptoms or complaints.
Objective Data
-
Labs:
Laboratory Results
03/09/25
06:13
WBC 8.1
Hgb 9.0 L
Hct 28.7 L
Plt Count 150
Sodium 134 L
Potassium 4.4
Chloride 102
Carbon Dioxide 26
BUN 14
Creatinine 0.9
Glucose 123 H
Calcium 8.5
Vital Signs:
Vital Signs
Temp Pulse Resp BP Pulse Ox
98.0 F 71 18 153/82 94
03/09/25 07:15 03/09/25 08:05 03/09/25 07:15 03/09/25 08:05 03/09/25 07:15
I&O
03/08/25 03/09/25 03/10/25
06:59 06:59 06:59
Intake Total 1300 / 1300 660 / 660 100 / 100
Output Total 1900 / 1900 1300 / 1300 350 / 350
Balance -600 / -600 -640 / -640 -250 / -250
--- NOTE | 2025-03-09 14:34 | W.PN.URO.CBU ---
Today's Communication / Plan
-
CBI clamped today
VT in AM (ordered by Urology)
Dispo planning for SNF/rehab per Hospitalist
ASA restarted - hold Eliquis for now
Will d/w daughter (Cynthia).
Assessment / Plan
-
Patient Diagnosis:
Urinary retention s/p TURP
Hematuria
Enterococcus cUTI + bacteremia
Hematuria => resolved after initial CBI, H/H stable w/o evidence of active bleeding
CT w/o acute pathology noted
ID following for Enterococcal bacteremia
ASA restarted, Eliquis still on hold
Diagnosis
-
Date of Service: March 09, 2025
-
Patient Diagnosis:
Urinary retention s/p TURP
Hematuria
Enteroccocus cUTI + bacteremia
Subjective
-
Urine clear AM and mid-day.
Tolerating diet.
Objective
-
Vital Signs
Temp Pulse Resp BP Pulse Ox
98.0 F 71 18 153/82 94
03/09/25 07:15 03/09/25 08:05 03/09/25 07:15 03/09/25 08:05 03/09/25 07:15
Intake and Output
03/08/25 03/09/25 03/10/25
06:59 06:59 06:59
Intake Total 1300 / 1300 660 / 660 100 / 100
Output Total 1899 / 0 1300 / 1300 350 / 350
Balance -600 / -600 -640 / -640 -250 / -250
Intake:
Oral fluids 1200 / 1200 660 / 660
IV piggybacks 100 / 100 100 / 100
Output:
Urine, Mark 350 / 350
True Urine Output from CBI 1900 / 1900 1300 / 1300
Laboratory Results
03/09/25 06:13
03/09/25 06:13
Physical Exam
-
General - well developed, well nourished, no acute distress
Abdomen - soft, non-tender, non-distended
- 3-way catheter in place w/ clear UOP in tubing w/o clots
Neuro - AOx3, no motor deficits
Extremities - no clubbing, no cyanosis, no edema
Care Review
Data Reviewed
CT Scan: Report Pers Reviewed and Image Pers Reviewed
[2025-03-09 15:22] VITALS: BP 150/98
--- NOTE | 2025-03-09 16:44 | PTCARENOTE ---
Pt leaking urine past villalobos catheter. Dr. Elizabeth notified. Ordered to replace catheter with a 22 FR
[2025-03-09] MEDS: LOW STRENGTH ASPIRIN 81 MG PO (17:28)
[2025-03-09] MEDS: ZETIA 10 MG PO (17:28)
[2025-03-09] MEDS: LIPITOR 80 MG PO (17:28)
[2025-03-09] MEDS: ZESTRIL 5 MG PO (17:42)
[2025-03-09] MEDS: FLOMAX 0.4 MG PO (21:19)
[2025-03-09 23:09] VITALS: BP 131/73
--- NOTE | 2025-03-10 02:19 | DOWNTIME ---
There was a [facility] Client Admissions Director Downtime on 03/10/2025 from 0100 to 03/10/2025 at 0215. Downtime documentation of patient's care, including medication administrations, has been reconciled in the electronic record per guidelines. Refer to the
patient's paper chart under the miscellaneous tab to see printed paper medication records and downtime forms.
[2025-03-10] MEDS: AMPICILLIN 108 MG IV ×6 (02:21→21:26)
--- NOTE | 2025-03-10 05:23 | PTCARENOTE ---
Throughout this shift, RN has irrigated CBI catheter 4 times with 60cc NSS per order. Patients urine has become more red throughout the night from starting at a straw color, has clots and more debri once irrigated. Slightly increased flow of CBI.
Patient has had no leaking around catheter and no complaints of pain, pressure or discomfort from catheter at all. Will continue to monitor.
[2025-03-10] MEDS: SYNTHROID 100 MCG PO (05:50)
[2025-03-10 07:22] VITALS: BP 153/78
[2025-03-10 07:22] LABS: Hematocrit 27.5 % (39.0-52.0); Hemoglobin 8.8 g/dL (13.0-18.0); Mean Corp Hgb Conc. 32.0 g/dL (33.0-37.0); Mean Corpuscular Volume 101.1 fL (80.0-94.0); Platelet Count 174 10^3/uL (130-400); Red Cell Dist. Width 14.8 % (11.5-14.5)
--- NOTE | 2025-03-10 07:47 | W.PN.URO.CBU ---
Today's Communication / Plan
-
D/c Mark catheter this AM - VT today
Tamsulosin 0.4 mg this AM
IV abx per ID
Continue ASA, hold Eliquis 24-48 hrs (will confirm prior to d/c)
Dispo planning for rehab per Hospitalist
D/w daughter (Cynthia)
Assessment / Plan
-
Patient Diagnosis:
Urinary retention s/p TURP
Hematuria
Enterococcus cUTI + bacteremia
Hematuria => resolved after initial CBI, H/H stable w/o evidence of active bleeding
CT w/o acute pathology noted
ID following for Enterococcal bacteremia - IV Ampicillin
ASA restarted, Eliquis still on hold
Diagnosis
-
Date of Service: March 10, 2025
-
Patient Diagnosis:
Urinary retention s/p TURP
Hematuria
Enteroccocus cUTI + bacteremia
Subjective
-
Feels well.
Afebrile.
Jelena-catheter leakage from yesterday afternoon resolved w/ catheter change.
Urine w/ clear outflow on low drip.
Objective
-
Vital Signs
Temp Pulse Resp BP Pulse Ox
97.8 F 75 20 153/78 93
03/10/25 07:22 03/10/25 07:22 03/10/25 07:22 03/10/25 07:22 03/10/25 07:22
Intake and Output
03/09/25 03/10/25 03/11/25
06:59 06:59 06:59
Intake Total 660 / 660 1276 / 1276
Output Total 1300 / 1300 650 / 650
Balance -640 / -640 626 / 626
Intake:
Oral fluids 660 / 660 960 / 960
IV piggybacks 316 / 316
Output:
Urine, Mark 1100 / 1100
True Urine Output from CBI 1300 / 1300 -450 / -450
Other:
How many times incontinent 2
SATURATED amount urine
Laboratory Results
03/10/25 06:11
Physical Exam
-
General - well developed, well nourished, no acute distress
Abdomen - soft, non-tender
- 3-way catheter w/ clear outflow on low drip
Neuro - AOx3, no motor deficits
Extremities - no clubbing, no cyanosis, no edema
Care Review
Data Reviewed
Discussed with: Hospitalist, Nursing and Family
CT Scan: Report Pers Reviewed and Image Pers Reviewed
Total Time Spent with Patient (in minutes): 25
[2025-03-10 07:48] LABS: Blood Urea Nitrogen 13 mg/dl (9-20); Calcium 8.5 mg/dl (8.4-10.2); Carbon Dioxide 26 mmol/L (22-30); Chloride 102 mmol/L (98-107); Estimated Creatinine Clearance 72 ml/min; Glucose 100 mg/dl (70-99); Potassium 3.9 mmol/L (3.5-5.1); Sodium 131 mmol/L (135-145); eGFR > 60.00
--- NOTE | 2025-03-10 08:18 | W.PN.HOSP.TC ---
Today's Communication/Plan
-
Continue IV antibiotics
PAULETTE tomorrow
Assessment / Plan
Assessment / Plan
Physical Exam
General: Not in acute distress
HEENT: Moist mucous membranes
Respiratory: Clear Bilaterally
Cardiac: S1/S2 and Regular Rhythm
GI: Soft, Non Tender, Non Distended and Normal Bowel Sounds
Genitourinary: Mark in place draining clear urine
Musculoskeletal: No Cyanosis and Other (R > L LE edema. No calf tenderness / cords.)
Neuro: AO x 3
Assessment/Plan
84 y/o male with past medical history significant for ASCVD, A-Fib and hypertension who presented to [facility] emergency room complaining of difficulty urinating and grossly bloody urine. Patient underwent TURP here at [facility] on 02/22/25. He was discharged
with Mark Catheter in place. He was seen in the office on 03/11/25, and his Mark Catheter was removed at that time. Patient was advised to straight cath himself at home twice daily thereafter. He stated that he had significant difficulty
performing the procedure on his own due to vision limitations. He had not successfully performed a catheterization since that time. Patient stated that he was initially passing good volumes of urine; however, this significantly decreased throughout
the week. On 03/14/25, he noted very little urine output with some passage of clots and presented to the [facility] ED for further evaluation. At the time of admission, he denied any pain, abdominal pain, flank pain, dysuria, etc, but he did say that had
some chills at home.
Gross Hematuria after recent TURP 02/22/25
Yes, Hematuria is related to/associated with/exacerbated by Eliquis
Difficulty Urinating
BPH s/p TURP 02/22/25
- Mark re-placed in the ED for return of grossly bloody urine and clot.
- No need for OR as per urologist Dr. Elizabeth (since no active bleeding while patient is on Aspirin 81 mg daily)
- CBI clamped today -- possible voiding trial tomorrow
- Continue to hold Eliquis (last dose was 03/04/25 morning).
- Follow serial H&H and monitor for improvement in hematuria.
- Continue finasteride / tamsulosin.
- Urology consulted for additional recommendations.
Complicated UTI
UTI is related to/associated with/due to self catheterization
Enterococcal bacteremia
Sepsis, POA
- Patient presented with fever (103 F), leukocytosis, tachycardia and tachypnea.
- On 03/06/25, stopped Ceftriaxone
- Ampicillin IV 2 gram Q4H started on 03/06/25 -- continue
- Follow repeat blood cultures -- negative so far
- Echo could not rule out vegetations
- Cardiology consulted for PAULETTE tomorrow 03/11/25
- Appreciate ID consultation
ASCVD
History of NSTEMI, Multivessel CAD and CABG
- Stable. No CV issues x years per patient.
- On 03/06/[address] Kaur who said okay to resume Aspirin 81 mg daily -- continue Aspirin 81 mg daily
- Continue metoprolol with holding parameters.
History of Ischemic cardiomyopathy with EF 45%
Paroxysmal Atrial Fibrillation
- Stable. Continue metoprolol as noted above.
- Hold Eliquis as noted above.
History of Aortic Valve Replacement
Hyponatremia
- Stable
- Continue to monitor BMP
Benign Hypertension
- Continue Lisinopril
- Continue Metoprolol
Diet-Controlled DM-II
- Listed in med history. On no DM medications.
- A1c 5.5% -- but this may not be reliable in setting of patient's blood loss
- Follow for elevations in glucose.
Hyperlipidemia
- Continue home Atorvastatin
- Continue home Ezetimibe
Osteoarthritis
Hypothyroidism
- Continue Levothyroxine
DVT Prophylaxis
- Asymmetric LE edema with R > L calf girth. Patient reports recent fall with LEFT leg hematoma - which does not explain discrepancy.
- US of lower extremities showed NO DVT.
- Continue mechanical prophylaxis (continue SCDs)
- Hold on pharmacologic prophylaxis given bleeding.
Code Status: DNR
On 03/10/25, I called patient's daughter Cynthia and I updated her with a thorough explanation as to patient's current medical problems and management in detail. I answered all of her questions and concerns to satisfaction.
Anticipated Discharge: 24 - 48 hours
Subjective/Interval History
-
Date of Service: March 10, 2025
Patient was seen and examined. He was doing okay, denied any new significant symptoms or complaints.
Objective Data
-
Labs:
Laboratory Results
03/10/25
06:11
WBC 7.5
Hgb 8.8 L
Hct 27.5 L
Plt Count 174
Sodium 131 L
Potassium 3.9
Chloride 102
Carbon Dioxide 26
BUN 13
Creatinine 0.8
Glucose 100 H
Calcium 8.5
Vital Signs:
Vital Signs
Temp Pulse Resp BP Pulse Ox
97.8 F 75 20 153/78 93
03/10/25 07:22 03/10/25 07:22 03/10/25 07:22 03/10/25 07:22 03/10/25 07:22
I&O
03/09/25 03/10/25 03/11/25
06:59 06:59 06:59
Intake Total 660 / 660 1276 / 1276
Output Total 1300 / 1300 650 / 650
Balance -640 / -640 626 / 626
[2025-03-10] MEDS: FLOMAX 0.4 MG PO ×2 (09:16→21:26)
[2025-03-10] MEDS: ZESTRIL 5 MG PO (09:16)
[2025-03-10] MEDS: PROSCAR 5 MG PO (09:16)
[2025-03-10] MEDS: TOPROL XL 25 MG PO (09:16)
--- NOTE | 2025-03-10 09:48 | W.PN.ID1 ---
Date of Service
Date of Service: March 10, 2025
Today's Communication
Continue ampicillin.
Assessment / Plan
Enterococcal bacteremia (2 of 4 bottles from admission)
Suspected complicated urinary tract infection
Obstructive uropathy
Fever
Leukocytosis
A-fib
CAD; Hx LA
GERD
HTN
HLD
Hypothyroidism
Anemia
BPH
Recommendations:
Repeat blood cultures negative x 96 hours.
- Repeat blood cultures obtained prior to initiation of ampicillin, although patient previously had been on Zosyn and vancomycin given in the ER.
Continue with ampicillin 2 gm IV q.4 hours.
ESR and CRP somewhat elevated.
TTE noted to be abnormal, although cannot confirm valvular vegetation
Cardiology to be consulted for possible PAULETTE
Follow white count and temperature curve.
����������������������������������������������������������
Chief Complaint
-: Bacteremia
Subjective / Review of Systems
Patient seen and examined. No specific complaints today.
Review of Systems: No Fever and No Chills
Vital Signs / Physical Exam
Vital Signs
Vital Signs
Temp Pulse Resp BP Pulse Ox
97.8 F 75 20 153/78 93
03/10/25 07:22 03/10/25 09:16 03/10/25 07:22 03/10/25 09:16 03/10/25 07:22
Physical Exam
Constitutional: No Acute Distress, Comfortable, Chronically Ill and Non-toxic
Eyes: Sclera Anicteric; Negative No Conjunctival Hemorrhage
Cardiovascular: S1/S2; Negative S3/S4 or Murmur
Pulmonary: Clear; Negative Wheezes or Rales
Gastrointestinal: Soft and Non Tender
Genito-Urinary: Mark (Triple-lumen) and Clear Urine; Negative Turbid Urine or Hematuria
Extremities: Negative Edema, Cyanosis, Splinter Hemorrhage or Janeway Lesions
Neurological: Awake and Alert
Psychological: Calm
Objective Data
Lab Data
Lab Results
03/10/25 06:11
03/10/25 06:11
ESR 49 mm/hour (0-20) H 03/07/25 05:20
PT 18.8 Sec (11.4-14.6) H 03/05/25 06:03
INR 1.52 03/05/25 06:03
APTT 34.3 Sec (23.4-35.0) 03/05/25 06:03
Estimated Creat Clear 72 ml/min 03/10/25 06:11
Lactic Acid 1.4 mmol/L (0.7-2.0) 03/05/25 00:34
Total Bilirubin 0.6 mg/dl (0.2-1.3) 03/04/25 23:13
AST 26 U/L (17-59) 03/04/25 23:13
ALT 22 U/L (0-50) 03/04/25 23:13
Alkaline Phosphatase 83 U/L (38-126) 03/04/25 23:13
C-Reactive Protein 77.80 mg/L (0.0-10.00) H 03/07/25 05:20
Most recent labs reviewed.
Micro Results:
03/06/25 08:44 Blood Culture - Preliminary
Blood/Venous No Growth in 4 days- Final report to follow
03/05/25 00:33 Blood Culture - Final
Blood/Venous No Growth - Final Report
03/06/25 09:23 Blood Culture - Preliminary
Blood/Venous No Growth in 72 hours- Final report to follow
03/04/25 23:14 Blood Culture - Final
Blood/Venous Enterococcus faecalis
Gram Stain - Final
03/05/25 00:33 Influenza Types A & B (JENNY) - Final
Nasal Swab Negative for Influenza A & B, NAAT
Negative results must be combined with clinical observations
and patient history.
Nucleic Acid Amplification test (NAAT)performed on the
[employer] platform.
Imaging:
03/09/2025 ECHO (TTE): technically difficult study. EF approximately 40%. TAVR present and appears thickened. No aortic insufficiency. Sclerotic mitral valve with perhaps very mild mitral stenosis. Cannot exclude vegetation on the basis of this
study.
03/05/2025 CT abdomen/pelvis without contrast: no evidence of intestinal obstruction, nephrolithiasis, hydronephrosis, cholecystitis or abscess formation. Mark catheter is present within the urinary bladder which is decompressed. Mild prostatic
enlargement. Cholelithiasis without evidence of acute cholecystitis.
Care Review
Plan reviewed with: Physician (Hospitalist)
--- NOTE | 2025-03-10 10:44 | CON.CAR ---
Addendum entered and electronically signed by eJtt Gaston DO 03/10/25 13:36:
I saw and examined the patient.
The Director Private's note was reviewed and I agree with the note.
Comment:
Plan:
Reviewed PAULETTE with pt and he is in agreement. This will be scheduled for tomorrow.
Reviewed 2D echo
Check EKG, pt is not on tele.
Cont abx as per ID.
Will arrange for outpt cardiac follow up after d/c
Original Note:
Consultation
Consultation Request
Date/Time Consultation Requested: 03/10/2025
Date/Time Consultation Performed: 03/10/2025
Requesting Provider: Dr. Westbrook
Performing Provider: Dr. Gaston
Reason for Consultation: Bacteremia and evaluation for possible PAULETTE
Medical History
-
History of Present Illness:
Patient came to the hospital this past with difficulty urinating and gross hematuria prompting admission for urinary retention and possible sepsis, but remains hospitalized and cardiology is now consulted for Enterococcus bacteremia and
consideration for PAULETTE. Patient had TURP on 02/22/2025 and held his Eliquis for procedure and then resume Eliquis when directed by urology. Patient saw his urologist in the office on 03/01/2025 and his Mark catheter was removed and he was
instructed on how to straight cath himself twice a day, but this was less than successful at home and when he came to the ER there was evidence of gross hematuria and Mark catheter was placed with CBI running. Patient was initially managed for
sepsis and blood cultures were positive for Enterococcus on 03/04/2025, but repeat blood cultures on 03/05/2025 and 03/06/2025 were without growth. Initial blood cultures that were positive were obtained off of any antibiotic therapy, patient was
then given Zosyn and vancomycin in the ER and eventually transition to ampicillin when blood cultures were rechecked the following 2 times. When he had an echo done yesterday we could not definitively rule out a vegetation.
PMH:
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
CAD s/p CAB x 3 with MARIE-LAD, SVG seq - OM2, RPDA 04/22/2014 with patent grafts and new occluded OM1 with failed PTCA attempt by cath 07/19/20
Chronic HFrEF
ICM EF 40% by echo 03/09/2025
Paroxysmal a-fib
Chronic OAC with Eliquis
HTN
HLD
HARPREET on CPAP
Obesity
DM II, diet controlled
Hypothyroidism
Osteoarthritis
Former smoker
h/o right TKR 2013
Past Medical History
Past Medical History: Other (in HPI)
Past Surgical History: Cardiac (CABG 2013, TAVR 2020), Orthopedic and Tonsilectomy
Social History
Tobacco: Former Smoker
Alcohol: Other (2-3 nights a week)
Drug: None
Living: Alone
Family History
Family History: CAD
Allergies / Home Medications
Allergy/AdvReac Type Severity Reaction Status Date / Time
No Known Allergies Allergy Verified 03/04/25 23:05
�Medication �Instructions �Recorded �Confirmed �Type
aspirin 81 mg chewable tablet 81 mg PO QPM Blood clot 07/19/20 03/05/25 History
(Reuben Chewable Low Dose Aspirin) prevention/tx
atorvastatin 80 mg tablet 80 mg PO QPM High cholesterol 07/19/20 03/05/25 History
ezetimibe 10 mg tablet 10 mg PO QPM High cholesterol 07/19/20 03/05/25 History
finasteride 5 mg tablet 5 mg PO DAILY PROSTATE 07/19/20 03/05/25 History
levothyroxine 100 mcg tablet 100 mcg PO DAILY Thyroid 07/19/20 03/05/25 History
lisinopril 5 mg tablet 5 mg PO DAILY Blood pressure 07/19/20 03/05/25 History
metoprolol succinate 25 mg 25 mg PO DAILY Blood pressure 07/19/20 03/05/25 History
tablet,extended release 24 hr
vit C 250 mg-vit E 90 mg-zinc 40 1 ea PO BID Supplement 07/19/20 03/05/25 History
mg-copper 1 [id number]
capsule (PreserVision AREDS-2)
apixaban 5 mg tablet (Eliquis) 5 mg PO BID Blood clot 08/08/20 03/05/25 History
Held on 02/24/25. prevention/tx
Instructions: Resume on
02/27/25.
furosemide 20 mg tablet (Lasix) 20 mg PO DAILY PRN Fluid 08/12/20 03/05/25 History
retention/Swelling
tamsulosin 0.4 mg capsule 0.4 mg PO HS 02/19/25 03/05/25 History
Review of Systems
-
History Source: Patient
All other systems: Negative unless noted
Physical Exam
Vital Signs
Temp Pulse Resp BP Pulse Ox
97.8 F 75 20 153/78 93
03/10/25 07:22 03/10/25 09:16 03/10/25 07:22 03/10/25 09:16 03/10/25 07:22
GEN: No distress, awake, alert, oriented x3, sitting up in bed finishing breakfast
HEENT: EOMI, MMM
LUNGS: few scattered crackles, no wheezes/rales
CV: Not on telemetry. Reg, S1/S2, no murmur
ABD: ND
EXT: No edema B/L LE
NEURO: Gross non-focal
SKIN: Warm, pink, dry. No rash
Lab Results
03/10/25 06:11
03/10/25 06:11
Impression / Plan
-
PCP: Dr. Mamadou Mi
Primary Oriental Medicine Practitioner: Dr. Gasotn
Impression:
Admitted with urinary retention, hematuria and sepsis 03/04/2025
Enterococcus bacteremia, positive blood cultures 03/04/2025 followed by blood cultures with no growth 03/05/2025 and 03/06/2025
Sepsis on admission
Gross hematuria following TURP 02/22/2025
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
CAD s/p CAB x 3 with MARIE-LAD, SVG seq - OM2, RPDA 04/22/2014 with patent grafts and new occluded OM1 with failed PTCA attempt by cath 07/19/20
Chronic HFrEF
ICM EF 40% by echo 03/09/2025
Paroxysmal a-fib
Chronic OAC with Eliquis
HTN
HLD
HARPREET on CPAP
Obesity
DM II, diet controlled
Hypothyroidism
Osteoarthritis
Former smoker
h/o right TKR 2013
Echo 03/09/2025: EF 40%, Evolut Pro plus TAVR present with peak/mean 12/5 mmHg, no significant aortic insufficiency, very mild MS with mean gradient 3 mmHg, mild to moderate MR, mild TR with PAP 8 mmHg, cannot exclude vegetation on basis of the study
Plan:
-Patient came to the hospital this past with difficulty urinating and gross hematuria prompting admission for urinary retention and possible sepsis, but remains hospitalized and cardiology is now consulted for Enterococcus bacteremia and
consideration for PAULETTE. Patient had TURP on 02/22/2025 and held his Eliquis for procedure and then resume Eliquis when directed by urology. Patient saw his urologist in the office on 03/01/2025 and his Mark catheter was removed and he was
instructed on how to straight cath himself twice a day, but this was less than successful at home and when he came to the ER there was evidence of gross hematuria and Mark catheter was placed with CBI running. Patient was initially managed for
sepsis and blood cultures were positive for Enterococcus on 03/04/2025, but repeat blood cultures on 03/05/2025 and 03/06/2025 were without growth. Initial blood cultures that were positive were obtained off of any antibiotic therapy, patient was
then given Zosyn and vancomycin in the ER and eventually transition to ampicillin when blood cultures were rechecked the following 2 times. When he had an echo done yesterday we could not definitively rule out a vegetation.
-No ECG checked this admission, ordered by me. Patient is not on telemetry.
-Echo reviewed by me and summarized above. EF is stable at 40% and TAVR are is stable by gradients.
-Patient had Enterococcus on initial blood cultures, but no growth on 2 subsequent cultures that were drawn following antibiotics. ID note reviewed by me, so plan will be for PAULETTE on 03/11/2025 and patient is agreeable.
-Outpatient dose of Eliquis 5 mg BID (age 84, Cre 0.8, wt 94 kg) is on hold due to gross hematuria. Urology would like Eliquis to remain on hold for another 24 to 48 hours. Mark catheter was d/c'd 03/10/2025.
-Outpatient dose of aspirin 81 mg daily has been continued
-Patient was taking Lasix 20 mg daily PRN prior to admission. No evidence of volume overload on CT of the abd/pelvis 03/05/2025, no evidence of pleural effusion, no evidence of pericardial effusion.
-Outpatient dose of Toprol XL 25 mg daily has been continued
-Outpatient dose of lisinopril 5 mg daily has been continued
-I called and updated the patient's daughter who is a nurse, Cynthia, for about 7 minutes on 03/10/2025. We reviewed the hospital course thus far including the findings of Enterococcus bacteremia, echo results and plan for PAULETTE in the morning.
Patient's daughter is in agreement and states that she will be at a for her cousin tomorrow and request that if she does not answer her phone that the physician leaves a message.
--- NOTE | 2025-03-10 14:27 | CM ---
CM following re: discharge planning.
Reviewed pt's chart, met with pt.
PT and OT continue recommending SNF level of care. [facility] offered a bed.
D/C plan: [facility] when medically stable.
[2025-03-10 15:37] VITALS: BP 135/75
[2025-03-10] MEDS: LIPITOR 80 MG PO (17:50)
[2025-03-10] MEDS: ZETIA 10 MG PO (17:50)
[2025-03-10] MEDS: LOW STRENGTH ASPIRIN 81 MG PO (17:50)
[2025-03-10 23:10] VITALS: BP 119/58
[2025-03-11] MEDS: AMPICILLIN 108 MG IV ×6 (02:02→21:28)
[2025-03-11 06:00] VITALS: BMI 32.7
[2025-03-11 06:17] LABS: Hematocrit 25.2 % (39.0-52.0); Hemoglobin 8.2 g/dL (13.0-18.0); Mean Corp Hgb Conc. 32.5 g/dL (33.0-37.0); Mean Corpuscular Volume 97.7 fL (80.0-94.0); Platelet Count 183 10^3/uL (130-400); Red Cell Dist. Width 14.8 % (11.5-14.5)
[2025-03-11] MEDS: SYNTHROID 100 MCG PO (06:28)
[2025-03-11 06:39] LABS: Blood Urea Nitrogen 14 mg/dl (9-20); Calcium 8.6 mg/dl (8.4-10.2); Carbon Dioxide 26 mmol/L (22-30); Chloride 102 mmol/L (98-107); Estimated Creatinine Clearance 73 ml/min; Glucose 105 mg/dl (70-99); Magnesium 1.9 mg/dl (1.6-2.3); Potassium 4.1 mmol/L (3.5-5.1); Sodium 131 mmol/L (135-145); eGFR > 60.00
[2025-03-11 06:47] LABS: C-Reactive Protein 29.70 mg/L (0.0-10.00)
[2025-03-11 07:15] VITALS: BP 160/82
--- NOTE | 2025-03-11 08:53 | W.PN.CARDCBS ---
Today's Communication / Plan
-
PAULETTE with no clear evidence of endocarditis. Continue antibiotics per ID continue medical therapy for coronary artery disease.
Transcatheter aortic valve is stable with no paravalvular eak.
Impression / Plan
-
PCP: Dr. Mamadou Mi
Primary Photographers' Model: Dr. Gaston
Impression:
Admitted with urinary retention, hematuria and sepsis 03/04/2025
Enterococcus bacteremia, positive blood cultures 03/04/2025 followed by blood cultures with no growth 03/05/2025 and 03/06/2025
Sepsis on admission
Gross hematuria following TURP 02/22/2025
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
CAD s/p CAB x 3 with MARIE-LAD, SVG seq - OM2, RPDA 04/22/2014 with patent grafts and new occluded OM1 with failed PTCA attempt by cath 07/19/20
Chronic HFrEF
ICM EF 40% by echo 03/09/2025
Paroxysmal a-fib
Chronic OAC with Eliquis
HTN
HLD
HARPREET on CPAP
Obesity
DM II, diet controlled
Hypothyroidism
Osteoarthritis
Former smoker
h/o right TKR 2013
Echo 03/09/2025: EF 40%, Evolut Pro plus TAVR present with peak/mean 12/5 mmHg, no significant aortic insufficiency, very mild MS with mean gradient 3 mmHg, mild to moderate MR, mild TR with PAP 8 mmHg, cannot exclude vegetation on basis of the study
Plan:
-Patient came to the hospital this past with difficulty urinating and gross hematuria prompting admission for urinary retention and possible sepsis, but remains hospitalized and cardiology is now consulted for Enterococcus bacteremia and
consideration for PAULETTE. Patient had TURP on 02/22/2025 and held his Eliquis for procedure and then resume Eliquis when directed by urology. Patient saw his urologist in the office on 03/01/2025 and his Mark catheter was removed and he was
instructed on how to straight cath himself twice a day, but this was less than successful at home and when he came to the ER there was evidence of gross hematuria and Mark catheter was placed with CBI running. Patient was initially managed for
sepsis and blood cultures were positive for Enterococcus on 03/04/2025, but repeat blood cultures on 03/05/2025 and 03/06/2025 were without growth. Initial blood cultures that were positive were obtained off of any antibiotic therapy, patient was
then given Zosyn and vancomycin in the ER and eventually transition to ampicillin when blood cultures were rechecked the following 2 times. When he had an echo done yesterday we could not definitively rule out a vegetation.
- Transesophageal echo with no clear evidence of endocarditis. Continue antibiotics per ID
- Continue medical therapy for coronary artery disease. Continue aspirin, lisinopril, metoprolol atorvastatin, and Zetia
Progress Note - Photographers' Model
Subjective
Date of Service: March 11, 2025
Denies chest pain or shortness of breath. No fevers
Objective
Labs:
03/11/25 05:38
03/11/25 05:38
Labs
Hgb 8.2 g/dL (13.0-18.0) L 03/11/25 05:38
Hct 25.2 % (39.0-52.0) L 03/11/25 05:38
Plt Count 183 10^3/uL (130-400) 03/11/25 05:38
PT 18.8 Sec (11.4-14.6) H 03/05/25 06:03
INR 1.52 03/05/25 06:03
APTT 34.3 Sec (23.4-35.0) 03/05/25 06:03
Sodium 131 mmol/L (135-145) L 03/11/25 05:38
Potassium 4.1 mmol/L (3.5-5.1) 03/11/25 05:38
BUN 14 mg/dl (9-20) 03/11/25 05:38
Creatinine 0.8 mg/dL (0.7-1.3) 03/11/25 05:38
Glucose 105 mg/dl (70-99) H 03/11/25 05:38
Vital Signs and I&O:
Vital Signs
Temp Pulse Resp BP Pulse Ox
97.9 F 75 18 160/82 93
03/11/25 07:15 03/11/25 07:15 03/11/25 07:15 03/11/25 07:15 03/11/25 07:15
Vital Signs
Temp Pulse Resp BP Pulse Ox
97.9 F 75 18 160/82 93
03/11/25 07:15 03/11/25 07:15 03/11/25 07:15 03/11/25 07:15 03/11/25 07:15
Intake & Output
03/09/25 03/10/25 03/11/25 03/12/25
06:59 06:59 06:59 06:59
Intake Total 660 / 660 1276 / 1276 2053
Output Total 1300 / 1300 650 / 650 2480 / 2480
Balance -640 / -640 626 / 626 -426 / -426
Physical Exam
Physical Exam
GEN: No distress, awake, Ox3
HEENT: supple, anicteric, mmm
LUNGS: CTA, no wheezes/rales
CV: Reg, S1/S2, 1/6 syst LSB, no gallop
ABD: soft, BS+, NT/ND
EXT: No edema
NEURO: Gross non-focal
SKIN: No rash
[2025-03-11] MEDS: ZESTRIL 5 MG PO (09:47)
[2025-03-11] MEDS: PROSCAR 5 MG PO (09:47)
[2025-03-11] MEDS: TOPROL XL 25 MG PO (09:47)
--- NOTE | 2025-03-11 12:11 | W.PN.ID1 ---
Date of Service
Date of Service: March 11, 2025
Today's Communication
Continue antibiotics. See below�
Assessment / Plan
Enterococcal bacteremia (2 of 4 bottles from admission)
Suspected complicated urinary tract infection
Obstructive uropathy
Fever
Leukocytosis
A-fib
CAD; Hx MN
GERD
HTN
HLD
Hypothyroidism
Anemia
BPH
Recommendations:
Repeat blood cultures negative
- Repeat blood cultures obtained prior to initiation of ampicillin, although patient previously had been on Zosyn and vancomycin given in the ER.
Continue with ampicillin 2 gm IV q.4 hours.
ESR and CRP somewhat elevated, but no evidence of vegetation noted on PAULETTE or TTE
Extensive discussion with patient regarding length of therapy, including 2-week course of therapy with follow-up blood cultures versus a full 6-week course. Via shared decision making he has selected a 2-week course.
Continue with ampicillin through 03/20/25.
Okay to place midline.
Blood cultures to be obtained around 04/03/2025 to confirm no ongoing bacteremia.
����������������������������������������������������������
Chief Complaint
-: Bacteremia
Subjective / Review of Systems
Review of Systems: No Fever and No Chills
Vital Signs / Physical Exam
Vital Signs
Vital Signs
Temp Pulse Resp BP Pulse Ox
97.9 F 75 18 147/70 93
03/11/25 07:15 03/11/25 09:47 03/11/25 07:15 03/11/25 09:47 03/11/25 07:15
Physical Exam
Constitutional: No Acute Distress and Comfortable
Eyes: Sclera Anicteric; Negative No Conjunctival Hemorrhage
Cardiovascular: S1/S2; Negative S3/S4 or Murmur
Pulmonary: Clear; Negative Wheezes or Rales
Gastrointestinal: Soft and Non Tender
Extremities: Negative Edema, Cyanosis, Splinter Hemorrhage or Jan[place]ay Lesions
Neurological: Awake and Alert
Psychological: Calm
Objective Data
Lab Data
Lab Results
03/11/25 05:38
03/11/25 05:38
ESR 28 mm/hour (0-20) H 03/11/25 05:38
PT 18.8 Sec (11.4-14.6) H 03/05/25 06:03
INR 1.52 03/05/25 06:03
APTT 34.3 Sec (23.4-35.0) 03/05/25 06:03
Estimated Creat Clear 73 ml/min 03/11/25 05:38
Lactic Acid 1.4 mmol/L (0.7-2.0) 03/05/25 00:34
Total Bilirubin 0.6 mg/dl (0.2-1.3) 03/04/25 23:13
AST 26 U/L (17-59) 03/04/25 23:13
ALT 22 U/L (0-50) 03/04/25 23:13
Alkaline Phosphatase 83 U/L (38-126) 03/04/25 23:13
C-Reactive Protein 29.70 mg/L (0.0-10.00) H 03/11/25 05:38
Most recent labs reviewed.
Micro Results:
03/06/25 09:23 Blood Culture - Final
Blood/Venous No Growth - Final Report
03/06/25 08:44 Blood Culture - Final
Blood/Venous No Growth - Final Report
03/05/25 00:33 Blood Culture - Final
Blood/Venous No Growth - Final Report
03/04/25 23:14 Blood Culture - Final
Blood/Venous Enterococcus faecalis
Gram Stain - Final
03/05/25 00:33 Influenza Types A & B (JENNY) - Final
Nasal Swab Negative for Influenza A & B, NAAT
Negative results must be combined with clinical observations
and patient history.
Nucleic Acid Amplification test (NAAT)performed on the
[employer] NOW platform.
Blood Culture Final 03/04/25
Positive for Enterococcus faecalis.
Performed by [employer] PCR methodology.
Organism 1 Enterococcus faecalis
1. Enterococcus faecalis
M.I.C. RX
--------- ---
Ampicillin <=2 S
Gentamicin Synergy Screen <=500 S
Susceptible result indicates synergy is likely with a cell
wall active agent that is also susceptible
(e.g.ampicillin,penicillin,vancomycin)
Vancomycin 2 S
Imaging:
03/09/2025 ECHO (TTE): technically difficult study. EF approximately 40%. TAVR present and appears thickened. No aortic insufficiency. Sclerotic mitral valve with perhaps very mild mitral stenosis. Cannot exclude vegetation on the basis of this
study.
03/05/2025 CT abdomen/pelvis without contrast: no evidence of intestinal obstruction, nephrolithiasis, hydronephrosis, cholecystitis or abscess formation. Mark catheter is present within the urinary bladder which is decompressed. Mild prostatic
enlargement. Cholelithiasis without evidence of acute cholecystitis.
--- NOTE | 2025-03-11 12:49 | W.PN.HOSP.TC ---
Today's Communication/Plan
-
See plan
Assessment / Plan
Assessment / Plan
Physical Exam
General: Not in acute distress
HEENT: Moist mucous membranes
Respiratory: Clear Bilaterally
Cardiac: S1/S2 and Regular Rhythm
GI: Soft, Non Tender, Non Distended and Normal Bowel Sounds
Genitourinary: Mark in place draining clear urine
Musculoskeletal: No Cyanosis and Other (R > L LE edema. No calf tenderness/cords.)
Neuro: AO x 3
Assessment/Plan
84 y/o male with past medical history significant for ASCVD, A-Fib and hypertension who presented to [facility] emergency room complaining of difficulty urinating and grossly bloody urine. Patient underwent TURP here at [facility] on 02/22/25. He was discharged
with Mark Catheter in place. He was seen in the office on 03/11/25, and his Mark Catheter was removed at that time. Patient was advised to straight cath himself at home twice daily thereafter. He stated that he had significant difficulty
performing the procedure on his own due to vision limitations. He had not successfully performed a catheterization since that time. Patient stated that he was initially passing good volumes of urine; however, this significantly decreased throughout
the week. On 03/14/25, he noted very little urine output with some passage of clots and presented to the [facility] ED for further evaluation. At the time of admission, he denied any pain, abdominal pain, flank pain, dysuria, etc, but he did say that had
some chills at home.
Gross Hematuria after recent TURP 02/22/25
Yes, Hematuria is related to/associated with/exacerbated by Eliquis
Difficulty Urinating
BPH s/p TURP 02/22/25
- Mark re-placed in the ED for return of grossly bloody urine and clot.
- No need for OR as per urologist Dr. Elizabeth (since no active bleeding while patient is on Aspirin 81 mg daily)
- CBI was previously clamped, and patient passed voiding trial yesterday as per nurse
- Continue to hold Eliquis (last dose was 03/04/25 morning) -- I communicated via [place] Text with urologist Dr. Elizabeth and he recommended resuming Eliquis on 03/12/25 evening
- Follow serial H&H and monitor for improvement in hematuria.
- Continue finasteride / tamsulosin.
- Urology consulted for additional recommendations.
Complicated UTI
UTI is related to/associated with/due to self catheterization
Enterococcal bacteremia
Sepsis, POA
- Patient presented with fever (103 F), leukocytosis, tachycardia and tachypnea.
- On 03/06/25, stopped Ceftriaxone
- Ampicillin IV 2 gram Q4H started on 03/06/25 -- continue
- Follow repeat blood cultures -- negative so far
- Echo could not rule out vegetations
- Cardiology consulted -- PAULETTE showed no vegetations
- Appreciate ID consultation: ID had extensive discussion with patient regarding length of therapy, including 2-week course of therapy with follow-up blood cultures versus a full 6-week course, ID did shared decision making
with patient and decision was made for a 2 week course of IV Ampicillin through 03/20/25 -- blood cultures to be obtained around 04/03/2025 to confirm no ongoing bacteremia.
- Patient getting midline.
ASCVD
History of NSTEMI, Multivessel CAD and CABG
- Stable. No CV issues x years per patient.
- On 03/06/[address] Kaur who said okay to resume Aspirin 81 mg daily -- continue Aspirin 81 mg daily
- Continue metoprolol with holding parameters.
History of Ischemic cardiomyopathy with EF 45%
Paroxysmal Atrial Fibrillation
- Stable. Continue metoprolol as noted above.
- Hold Eliquis as noted above.
History of Aortic Valve Replacement
Hyponatremia
- Stable
- Continue to monitor BMP
Benign Hypertension
- Continue Lisinopril
- Continue Metoprolol
Diet-Controlled DM-II
- Listed in med history. On no DM medications.
- A1c 5.5% -- but this may not be reliable in setting of patient's blood loss
- Follow for elevations in glucose.
Hyperlipidemia
- Continue home Atorvastatin
- Continue home Ezetimibe
Osteoarthritis
Hypothyroidism
- Continue Levothyroxine
DVT Prophylaxis
- Asymmetric LE edema with R > L calf girth. Patient reports recent fall with LEFT leg hematoma - which does not explain discrepancy.
- US of lower extremities showed NO DVT.
- Continue mechanical prophylaxis (continue SCDs)
- Hold on pharmacologic prophylaxis given bleeding.
Code Status: DNR
On 03/10/25, I called patient's daughter Cynthia and I updated her with a thorough explanation as to patient's current medical problems and management in detail. I answered all of her questions and concerns to satisfaction.
Anticipated Discharge: Within 24 hours
Subjective/Interval History
-
Date of Service: March 11, 2025
Patient was seen and examined. He denied any new symptoms or complaints.
Objective Data
-
Labs:
Laboratory Results
03/11/25
05:38
WBC 6.7
Hgb 8.2 L
Hct 25.2 L
Plt Count 183
Sodium 131 L
Potassium 4.1
Chloride 102
Carbon Dioxide 26
BUN 14
Creatinine 0.8
Glucose 105 H
Calcium 8.6
Vital Signs:
Vital Signs
Temp Pulse Resp BP Pulse Ox
97.9 F 75 18 147/70 93
03/11/25 07:15 03/11/25 09:47 03/11/25 07:15 03/11/25 09:47 03/11/25 07:15
I&O
03/10/25 03/11/25 03/12/25
06:59 06:59 06:59
Intake Total 7736 / 1276 2053
Output Total 650 / 650 2480 / 2480 300 / 300
Balance 626 / 626 -426 / -426 -300 / -300
--- NOTE | 2025-03-11 12:50 | CM ---
Addendum entered by Becca Beckwith 03/11/25 16:05:
Patient's son notified of discharge plan
ABX Script and Midline documentation sent to [facility] via [facility]
Addendum entered by Becca Beckwith 03/11/25 13:25:
Met with patient to discuss discharge plan
IMM Benefit explained; form signed @ 1325
Per Facility, Midline Access is acceptable
Per Nory Baptiste (cell #[phone]) @ [facility], facility can accept patient tomorrow morning; requested an 1100 ambulance pharmacy picking technician time if possible
Transport forms completed and on the patient's chart
Plan: Discharge to [facility] tomorrow morning via Ambulance
[place]
Report # [phone]

Original Note:
Updated clinicals sent to [facility] via [facility]
Plan: Discharge to [facility] when medically stable
[2025-03-11 15:05] VITALS: BP 155/79
[2025-03-11 15:59] VITALS: BP 126/65; PULSE 69; O2SAT 92
[2025-03-11] MEDS: LIPITOR 80 MG PO (17:28)
[2025-03-11] MEDS: ZETIA 10 MG PO (17:28)
[2025-03-11] MEDS: LOW STRENGTH ASPIRIN 81 MG PO (17:28)
[2025-03-11] MEDS: FLOMAX 0.4 MG PO (21:27)
[2025-03-11 23:07] VITALS: BP 102/58
[2025-03-12] MEDS: AMPICILLIN 108 MG IV ×4 (01:58→13:28)
[2025-03-12 06:00] VITALS: BMI 32.8
[2025-03-12] MEDS: SYNTHROID 100 MCG PO (06:30)
[2025-03-12] MEDS: TOPROL XL 25 MG PO (07:59)
[2025-03-12 08:00] VITALS: BP 152/83
[2025-03-12] MEDS: PROSCAR 5 MG PO (08:03)
[2025-03-12] MEDS: ZESTRIL 5 MG PO (08:03)
--- NOTE | 2025-03-12 08:54 | W.PN.HOSP.TC ---
Today's Communication/Plan
-
Discharge today
Assessment / Plan
Assessment / Plan
Physical Exam
General: Not in acute distress
HEENT: Moist mucous membranes
Respiratory: Clear Bilaterally
Cardiac: S1/S2 and Regular Rhythm
GI: Soft, Non Tender, Non Distended and Normal Bowel Sounds
Genitourinary: Mark in place draining clear urine
Musculoskeletal: No Cyanosis and Other (R > L LE edema. No calf tenderness/cords.)
Neuro: AO x 3
Assessment/Plan
84 y/o male with past medical history significant for ASCVD, A-Fib and hypertension who presented to [facility] emergency room complaining of difficulty urinating and grossly bloody urine. Patient underwent TURP here at [facility] on 02/22/25. He was discharged
with Mark Catheter in place. He was seen in the office on 03/11/25, and his Mark Catheter was removed at that time. Patient was advised to straight cath himself at home twice daily thereafter. He stated that he had significant difficulty
performing the procedure on his own due to vision limitations. He had not successfully performed a catheterization since that time. Patient stated that he was initially passing good volumes of urine; however, this significantly decreased throughout
the week. On 03/14/25, he noted very little urine output with some passage of clots and presented to the [facility] ED for further evaluation. At the time of admission, he denied any pain, abdominal pain, flank pain, dysuria, etc, but he did say that had
some chills at home.
Gross Hematuria after recent TURP 02/22/25
Yes, Hematuria is related to/associated with/exacerbated by Eliquis
Difficulty Urinating
BPH s/p TURP 02/22/25
- Mark re-placed in the ED for return of grossly bloody urine and clot, now Mark out and patient passed voiding trial on 03/10/25.
- No need for OR as per urologist Dr. Elizabeth (since no active bleeding while patient is on Aspirin 81 mg daily)
- CBI was previously clamped, and patient passed voiding trial on 03/10/25
- Continue to hold Eliquis (last dose was 03/04/25 morning) -- I communicated on 03/12/25 via [place] Text with urologist Dr. Elizabeth and he recommended resuming Eliquis on 03/12/25 evening
- Dr. Elizabeth will set up urology office appointment for patient for urine check and bladder scan with urology nurse in ~2 weeks
- Follow serial H&H and monitor for improvement in hematuria.
- Continue finasteride / tamsulosin.
- Urology consulted for additional recommendations.
Complicated UTI
UTI is related to/associated with/due to self catheterization
Enterococcal bacteremia
Sepsis, POA
- Patient presented with fever (103 F), leukocytosis, tachycardia and tachypnea.
- On 03/06/25, stopped Ceftriaxone
- Ampicillin IV 2 gram Q4H started on 03/06/25 -- continue through 03/20/25
- Follow repeat blood cultures -- negative so far
- Echo could not rule out vegetations
- Cardiology consulted -- PAULETTE showed no vegetations
- Appreciate ID consultation: ID had extensive discussion with patient regarding length of therapy, including 2-week course of therapy with follow-up blood cultures versus a full 6-week course, ID did shared decision making
with patient and decision was made for a 2 week course of IV Ampicillin through 03/20/25 -- blood cultures to be obtained around 04/03/2025 to confirm no ongoing bacteremia.
- Patient getting midline.
ASCVD
History of NSTEMI, Multivessel CAD and CABG
- Stable. No CV issues x years per patient.
- On 03/06/[address] Kaur who said okay to resume Aspirin 81 mg daily -- continue Aspirin 81 mg daily
- Continue metoprolol with holding parameters.
History of Ischemic cardiomyopathy with EF 45%
Paroxysmal Atrial Fibrillation
- Stable. Continue metoprolol as noted above.
- Resume Eliquis on 03/12/25 evening
History of Aortic Valve Replacement
Hyponatremia
- Stable
- Continue to monitor BMP
Benign Hypertension
- Continue Lisinopril
- Continue Metoprolol
Diet-Controlled DM-II
- Listed in med history. On no DM medications.
- A1c 5.5% -- but this may not be reliable in setting of patient's blood loss
- Follow for elevations in glucose.
Hyperlipidemia
- Continue home Atorvastatin
- Continue home Ezetimibe
Osteoarthritis
Hypothyroidism
- Continue Levothyroxine
DVT Prophylaxis
- Asymmetric LE edema with R > L calf girth. Patient reports recent fall with LEFT leg hematoma - which does not explain discrepancy.
- US of lower extremities showed NO DVT.
- Continue mechanical prophylaxis (continue SCDs)
- Hold on pharmacologic prophylaxis given bleeding.
Code Status: DNR
On 03/10/25, I called patient's daughter Cynthia and I updated her with a thorough explanation as to patient's current medical problems and management in detail. I answered all of her questions and concerns to satisfaction.
On 03/12/25, I called patient's daughter Cynthia and I updated her with a thorough explanation as to patient's current medical problems and management in detail. I answered all of her questions and concerns to satisfaction and she is in agreement
with discharge today to [facility].
More than 30 minutes spent in discharge including
Final examination of the patient
Summarizing hospital stay
Instructions for continuing care to all relevant caregivers
Preparation of discharge records, prescriptions, and referral forms
Total time spent (in minutes): 42
Anticipated Discharge: Today
Subjective/Interval History
-
Date of Service: March 12, 2025
Patient was seen and examined. He stated that he was doing well and denied any new symptoms or complaints.
Objective Data
-
Vital Signs:
Vital Signs
Temp Pulse Resp BP Pulse Ox
98.1 F 78 18 152/83 98
03/12/25 08:00 03/12/25 08:00 03/12/25 08:00 03/12/25 08:00 03/12/25 08:00
I&O
03/11/25 03/12/25 03/13/25
06:59 06:59 06:59
Intake Total 2053 696 / 696
Output Total 2480 / 0 1050 / 1050
Balance -426 / -426 -354 / -354
--- NOTE | 2025-03-12 10:45 | CM ---
CM following re: discharge planning.
Reviewed pt's chart, met with pt.
According to pt is medically stable to be discharged today. Both PT and his daughter are aware, expressed their agreement. IMM reviewed yesterday.
CM spoke to [facility] director of preclinical research and she confirmed that pt is accepted for admission today.
arranged ambulance transport BLS with pick and shovel man time 14:00. PMNC completed by previous CM and is on chart.
Both pt, his family and [facility] director of preclinical research are aware of discharge time.
[facility] nursing report: [phone]
Discharge instructions
D/C plan: [facility] today.
--- NOTE | 2025-03-12 11:20 | W.DCSUMMARY ---
Discharge Summary
Discharge Data
Date of Admission: 03/05/25
Date of Discharge: 03/12/25
Total time spent discharging patient (in min): 42
-
Pending Results: No
Hospital Course
84 y/o male with past medial history significant for ASCVD, A-Fib and hypertension who presented to [facility] ED complaining of difficulty urinating and grossly bloody urine. Patient underwent TURP here at [facility] on 02/22/25. He was discharged with Mark in
place. He was seen in the outpatient office and his Mark was removed at that time. Patient was advised to straight cath himself at home twice daily thereafter. He stated that he had significant difficulty performing the procedure on his own due to
vision limitations. Initially, patient was passing good volumes of urine -- however, this significantly decreased throughout the week. On the day of presentation to the hospital, he noted very little urine output with some passage of clots. Patient
also presented with fever, leukocytosis, tachycardia and tachypnea. Patient's Eliquis was held and he was started on CBI. He was also started on antibiotics for urinary tract infection. Urology was consulted. In the setting of patient's history of
multivessel CAD and history of CABG surgery, his Aspirin was resumed after discussion with urology. Patient's initial empiric Ceftriaxone antibiotics was switched to intravenous Ampicillin given enterococcus bacteremia. Infectious Disease was
consulted and recommended continuing the intravenous Ampicillin. Patient's urine blood cleared up over time, voiding trial was done, and he passed voiding trial. Transthoracic echocardiogram (TTE) could not rule out vegetation, therefore cardiology
was consulted for a transesophageal echocardiogram (PAULETTE). PAULETTE was performed and showed no evidence of endocarditis. Infectious Disease physician had extensive discussion with patient regarding length of therapy, including 2-week course of therapy
with follow-up blood cultures versus a full 6-week course and via shared-decision making, patient selected a 2-week course. Patient was doing well and stable for discharge.
Discharge Plan
-
Patient Disposition: Halfway/SNF
Discharge Diagnosis/Procedures: Gross Hematuria after recent TURP 02/22/25
Difficulty Urinating
BPH s/p TURP 02/22/25
Mild prostatic enlargement on hospital CT Imaging (as per radiologist's report)
Cholelithiasis on hospital CT Imaging (as per radiologist's report)
Complicated Urinary Tract Infection (UTI)
UTI is related to/associated with/due to self catheterization
Enterococcal bacteremia
Sepsis, Present on Arrival
ASCVD
History of NSTEMI, Multivessel CAD and CABG
Ischemic cardiomyopathy with Ejection Fraction 40%
Paroxysmal Atrial Fibrillation
History of Aortic Valve Replacement
Hyponatremia
Benign Hypertension
Diet-Controlled Diabetes Mellitus Type 2
Hyperlipidemia
Osteoarthritis
Hypothyroidism
Asymmetric Lower Extremity edema with Right > Left calf girth
Recent fall, prior to arrival, with left lower extremity hematoma
Transesophageal Echocardiogram (as per brim flexer's report):
'SUMMARY
1. Mildly dilated left ventricle with mildly reduced LV function. LVEF estimated at 40% with mild global hypokinesis. Mild left ventricular hypertrophy.
2. Right ventricular size and systolic function are within normal limits.
3. Moderately dilated left atrium.
4. Mildly dilated right atrium.
5. A transcatheter Evolut aortic valve is in place and functioning well. There was no significant evidence of paravalvular leak or endocarditis.
6. The mitral valve is thickened and moderately calcified. There is moderate mitral annular calcification. There is no clear evidence of endocarditis. There is mild to moderate mitral regurgitation present. There was mild mitral stenosis.
7. Thickened tricuspid valve with mild to moderate regurgitation.
8. A residual moderate-sized ASD is present.
9. Left pleural effusion is noted.
10. No clear evidence of endocarditis.'
Condition: Good
Diet: Low Fat, Low Cholesterol, Low Sodium, 2 Gram Sodium, Diabetic, Carb Controlled and Restrict fluids to 64 oz
Activity: As tolerated
Blood Work: CBC, BMP and Magnesium in 2 to 3 days
Other Services: PT
Specialty Instructions: Weigh Daily- Call MD for wt gain/loss 3 lbs overnight/5 lbs in 1 week
Activity Restrictions/Additional Instructions:
Urologist Dr. Elizabeth will set up urology office appointment for patient for urine check and bladder scan with urology nurse in ~2 weeks
Per Infectious Disease physician Dr. Tanner Trammell, continue with intravenous Ampicillin through 03/20/25.
Blood cultures need to be obtained around 04/03/2025 to confirm no ongoing bacteremia.
Referrals:
Mamadou Mi MD [Family Provider, [facility]] - in less than 1 week
Referral Note: Hospitalization Follow-Up
Feliz Elizabeth MD [Active, Urology] - in one to two weeks
Referral Note: Needs urology outpatient appointment around March 26, 2025, as per Dr. Elizabeth
Additional Discharge Medication Instructions: Resume Eliquis on 03/12/25 evening.
Per Infectious Disease physician Dr. Tanner Trammell, continue with intravenous Ampicillin through 03/20/25.
Prescriptions:
New
Ampicillin 2000 MG
0.9% Sodium Chloride 100 ml [Nss] 100 ML
108 mls/hr IV Q4H
Ordered By: Davi Westbrook MD
Last Taken: 03/12/25 13:28 108 mls
Continued
atorvastatin 80 MG tablet
80 mg PO QPM
levothyroxine 100 MCG tablet
100 mcg PO DAILY
aspirin [Reuben Chewable Aspirin] 81 MG tablet,chewable
81 mg PO QPM
lisinopril 5 MG tablet
5 mg PO DAILY
metoprolol succinate 25 MG tablet extended release 24 hr
25 mg PO DAILY
finasteride 5 MG tablet
5 mg PO DAILY
ezetimibe 10 MG tablet
10 mg PO QPM
PreserVision AREDS-2 1 EACH capsule
1 ea PO BID
Eliquis 5 MG tablet
5 mg PO BID
tamsulosin 0.4 mg capsule
0.4 mg PO HS
Held
furosemide [Lasix] 20 MG tablet
20 mg PO DAILY PRN (Reason: Fluid retention/Swelling)
Hold Instructions: Resume on 03/19/25.
Patient Comments:
Pt took 2-3 doses as outpatient prior to TAVR
Discharge Orders:
Discharge Patient (As Directed); Ordered 03/12/25
Ordered By: Davi Westbrook
Discharge Date and Time
Discharge Date/Time: 03/12/25 15:46
Print Language: CAMBODIAN
--- NOTE | 2025-03-12 11:39 | W.PN.UPDATE ---
Update Note
Progress Note Update
Patient voiding yellow urine w/o clots or persistent hematuria.
VT on 03/10.
Plan
- resume Eliquis PM 03/12
- continue aspirin
- F/U will be scheduled in office in 2 weeks for UA/PVR
- Pathology (benign) reviewed w/ daughter (Cynthia)
[2025-03-12 12:30] VITALS: BP 142/77
== END 2025-03-12 15:46 | DRG 698 ==
LOC: 2 SOUTH 02:04
PROVIDERS: Emergency Medicine; Hospitalist; Internal Medicine Cardiovascular Disease; Nurse Practitioner Family; Physician Assistant; ADMITTING PHYSICIAN Hospitalist; ATTENDING PHYSICIAN Hospitalist; CONSULT PHYSICIAN Internal Medicine Infectious Disease; EMERGENCY PHYSICIAN Student in an Organized Health Care Education/Training Program; FAMILY PHYSICIAN Family Medicine; OTHER PHYSICIAN Nuclear Medicine Nuclear Cardiology; OTHER PHYSICIAN Specialist
PROC: B24BZZ4 Ultrasonography of Heart with Aorta, Transesophageal (ICD-10-PCS; 2025-03-11)
DX: T83.518A Infection and inflammatory reaction due to other urinary catheter, initial encounter (principal); A41.81 Sepsis due to Enterococcus; N39.0 Urinary tract infection, site not specified; D68.32 Hemorrhagic disorder due to extrinsic circulating anticoagulants; N99.820 Postprocedural hemorrhage of a genitourinary system organ or structure following a genitourinary system procedure; Q21.10 Atrial septal defect, unspecified; I50.22 Chronic systolic (congestive) heart failure; R31.0 Gross hematuria; I25.10 Atherosclerotic heart disease of native coronary artery without angina pectoris; I25.2 Old myocardial infarction; I48.0 Paroxysmal atrial fibrillation; Z95.2 Presence of prosthetic heart valve; B95.2 Enterococcus as the cause of diseases classified elsewhere; E11.9 Type 2 diabetes mellitus without complications; I11.0 Hypertensive heart disease with heart failure; E03.9 Hypothyroidism, unspecified; Z95.1 Presence of aortocoronary bypass graft; Z96.653 Presence of artificial knee joint, bilateral; Z87.891 Personal history of nicotine dependence; Z79.890 Hormone replacement therapy; Z79.82 Long term (current) use of aspirin; Z79.01 Long term (current) use of anticoagulants; Z79.899 Other long term (current) drug therapy; D64.9 Anemia, unspecified; E66.9 Obesity, unspecified; Z68.32 Body mass index [BMI] 32.0-32.9, adult; G47.33 Obstructive sleep apnea (adult) (pediatric); K21.9 Gastro-esophageal reflux disease without esophagitis; Z66 Do not resuscitate
CPT/HCPCS: 71046; 74176; 80048; 80053; 81003; 81015; 82962; 83036; 83605; 83735; 85014; 85018; 85025; 85027; 85610; 85652; 85730; 86140; 86850; 86900; 86901; 87040; 87077; 87186; 87205; 87502; 87811; 93005; 93308; 93312; 93320; 93321; 93325; 93970; 97116; 97163; 97530; 99285

== ENCOUNTER → 2025-04-06 14:42 | Outpatient (REF) | payer MEDICARE, BC, SELFPAY | LOC: REG 14:42 | PROVIDERS: ATTENDING PHYSICIAN Internal Medicine Infectious Disease; FAMILY PHYSICIAN Family Medicine | DX: R78.81 Bacteremia (principal) | CPT/HCPCS: 36415; 87040 ==

== ENCOUNTER → 2025-04-22 10:45 | Outpatient (REF) | payer MEDICARE, BC, SELFPAY ==
[2025-04-22 12:05] LABS: Hematocrit 29.4 % (39.0-52.0); Hemoglobin 8.8 g/dL (13.0-18.0); Mean Corp Hgb Conc. 29.9 g/dL (33.0-37.0); Mean Corpuscular Volume 100.7 fL (80.0-94.0); Nucleated Red Blood Cells % 0 % (-); Platelet Count 183 10^3/uL (130-400); Red Cell Dist. Width 16.1 % (11.5-14.5)
[2025-04-22 13:10] LABS: ALT (SGPT) 21 U/L (0-50); AST (SGOT) 24 U/L (17-59); Albumin 4.3 g/dl (3.5-5.0); Alkaline Phosphatase 101 U/L (38-126); Blood Urea Nitrogen 22 mg/dl (9-20); Calcium 9.1 mg/dl (8.4-10.2); Carbon Dioxide 26 mmol/L (22-30); Chloride 101 mmol/L (98-107); Glucose 124 mg/dl (70-99); Potassium 4.5 mmol/L (3.5-5.1); Sodium 135 mmol/L (135-145); Total Protein 7.1 g/dl (6.3-8.2); eGFR > 60.00
== END ==
LOC: REG 10:45
PROVIDERS: ATTENDING PHYSICIAN Family Medicine
DX: D50.9 Iron deficiency anemia, unspecified (principal); I10 Essential (primary) hypertension
CPT/HCPCS: 36415; 80053; 85025